=== PATIENT | female | born 1995 | race Caucasian/White ===

== ENCOUNTER 2020-01-30 15:38 | Emergency (ER) | payer OTHER ==
--- OUTSIDE RECORDS SUMMARY | 2020-01-30 15:42 | XMS REPORT | Encounter Summary ---
:1995 Author Care Team Providers Name Role Phone Karime Kala Lump Inspector [phone] Reason for Visit ob 28 week visit Instructions 1. Routine care urinalysis, dipstick tubal ligation information pumping and storing breast milk education 2. screening glucose tolerance test, 1- hour CBC w/ auto diff HIV (1+2) Ab screen, serum RPR (rapid plasma reagin), serum antibody screen, serum or plasma 3. pyelectasis 4. Rubella non-immune 5. Trichomonal vaginitis in preg [place] trichomonas vaginalis DNA, PCR, unspecified specimen Discussion Note Discussed ultrasound findings. Disc ussed labor symptoms and expected movement. Encouraged adequate flu id intake and daily PNV and iron. 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 Procedures None recorded. Surgeries None recorded. Imaging None recorded. Medications Name Start Date acetaminophen 300 mg-codeine 30 mg tablet amoxicillin 500 mg capsule ferrous gluconate 240 mg (27 mg iron) tablet Take 1 tablet every day by oral route. Macrobid 100 mg capsule Take 1 capsule every 12 hours by oral route. metoclopramide 10 mg tablet Take 1 tablet every 6 hours by oral route as needed. promethazine promethazine 25 mg rectal suppository promethazine 25 mg tablet Take 1 tablet every 6 hours by oral route as needed. Medications Administered None recorded. Vitals Height Weight BMI Blood Pressure 5 ft 5 in 236.1 lbs 39.3 kg/m2 128/77 mm[Hg] Results Lab Results Date Name Specimen Result Interpretation Description Value Range Status Address Urinalysis, Leukocytes Small In-House Dipstick Results: For Internal U se Only Nitrite negative In-Smooth se Results: F or Internal U se Only Urobilinogen .2 In- House Results: F or Internal U se Only Protein 30 In-House Results: F or Internal U se Only Ph 6.0 In-House Results: F or Internal U se Only Blood Negative In-House Results: F or Internal U se Only Specific 1.030 In-Hous e [place] Results: For Internal U se Only Ketone Trace In-House Results: F or Internal U se Only Bilirubin Negative In-H ouse Results: F or Internal U se Only Glucose Negative In-Smooth se Results: F or Internal U se Only Appearance Slightly In- House Cloudy Results: F or Internal U se Only Color Yellow In-House Results: F or Internal U se Only US, Obstetric, No observation In-House Limited recorded. Result s: For Internal U se Only Urinalysis, Leukocytes Small In-House Dipstick Results: For Internal U se Only Nitrite negative In-Smooth se Results: F or Internal U se Only Urobilinogen .2 In- House Results: F or Internal U se Only Protein Trace In-House Results: F or Internal U se Only Ph 6.0 In-House Results: F or Internal U se Only Blood Negative In-House Results: F or Internal U se Only Specific 1.030 In-Hous e [place] Results: For Internal U se Only Ketone Negative In-Hous e Results: F or Internal U se Only Bilirubin Negative In-H ouse Results: F or Internal U se Only Glucose Negative In-Smooth se Results: F or Internal U se Only Appearance Clear In-Ho use Results: F or Internal U se Only Color Yellow In-House Results: F or Internal U se Only Allergies Code Code System Name Reaction Severity Status Onset NKDA Problems Name Status Onset Date Source Infection by Trichomonas Active 06/16/2019 Rubella Non-immune Active 08/05/2019 Active 08/05/2019 Pyelectasis Active 11/11/2019 Procedures Date Name Performed by 06/03/2000 Eye Surgery Information not avai lable 10/14/2019 US, Obstetric, Limited [place] [id number] 11/10/2019 US, Obstetric, Limited [facility] (Scheduling) [address] [place] [address] (Work Place) Vaccine List Vaccine Type influenza, injectable, quadrivalent 06/16/2019 Social History Tobacco Smoking Status Former Smoker Past Encounters 11/11/2019 Routine Care; Screen ing; Pyelectasis; Rubella Non- immune; Trichomonal Vaginitis in Karime Armendariz MD: [address], [place], [place] [id number], Ph. [phone] 10/14/2019 Routine Care; Anomaly of Kidney; Rubella Non-immune Karime Armendariz MD: [address], [place], [place] [id number], Ph. [phone] History of Present Illness None recorded. Review of Systems None recorded. Physical Exam None recorded.
--- OUTSIDE RECORDS SUMMARY | 2020-01-30 15:42 | XMS REPORT | Encounter Summary ---
:1995 Author Care Team Providers Name Role Phone Karime Armendariz Hot Iron Worker [phone] Reason for Visit NST BPP Instructions 1. Routine care urinalysis, dipstick 2. Gestational diabetes mellitus US, obstetric, biophysical profile gestational diabetes: care instructions 3. pyelectasis 4. Rubella non-immune Discussion Note: None recorded. Plan of Care Reminders Provider Appointments BPP/NST Sonogra m 12/22/2019 1:30PM BPP/NST Karime bolaños 12/22/2019 MD Kala 1:30PM Lab Urinalysis, In-Ho use Results Dipstick 12/16/2019 Referral None recorded. Procedures None recorded. Surgeries None recorded. Imaging US, Obstetric, In -House Results Biophysical Profile 12/16/2019 Medications Name Start Date acetaminophen 300 mg-codeine 30 mg tablet amoxicillin 500 mg capsule BD Ultra-Fine Shilpi Pen Needle 32 gauge x 5/32" ferrous gluconate 240 mg (27 mg iron) tablet Take 1 tablet every day by oral route. ferrous sulfate 325 mg (65 mg iron) tablet Take 1 tablet every day by oral route for 30 days. Levemir FlexTouch U-100 Insulin 100 unit/mL (3 mL) sub cutaneous pen Macrobid 100 mg capsule Take 1 capsule every 12 hours by oral route. metoclopramide 10 mg tablet Take 1 tablet every 6 hours by oral route as needed. metronidazole 500 mg tablet Take 1 tablet twice a day by oral route for 7 days. promethazine promethazine 25 mg rectal suppository promethazine 25 mg tablet Take 1 tablet every 6 hours by oral route as needed. True Metrix Glucose Meter True Metrix Glucose Test Strip Take 120 strips by miscell. route. TRUEplus Lancets 33 gauge Medications Administered None recorded. Vitals Height Weight BMI Blood Pressure 5 ft 5 in 246 lbs 40.9 kg/m2 122/77 mm[Hg] Results Lab Results Date Name Specimen Result Interpretation Description Value Range Status Address Urinalysis, Leukocytes Small In-House Dipstick Results: For Internal U se Only, Do N ot Delete/grabiel ge Nitrite negative In-Smooth se Results: F or Internal U se Only, Do N ot Delete/grabiel ge Urobilinogen .2 In- House Results: F or Internal U se Only, Do N ot Delete/grabiel ge Protein Trace In-House Results: F or Internal U se Only, Do N ot Delete/grabiel ge Ph 6.0 In-House Results: F or Internal U se Only, Do N ot Delete/grabiel ge Blood Negative In-House Results: F or Internal U se Only, Do N ot Delete/grabiel ge Specific 1.025 In-Hous e [place] Results: For Internal U se Only, Do N ot Delete/grabiel ge Ketone Negative In-Hous e Results: F or Internal U se Only, Do N ot Delete/grabiel ge Bilirubin Negative In-H ouse Results: F or Internal U se Only, Do N ot Delete/grabiel ge Glucose Negative In-Smooth se Results: F or Internal U se Only, Do N ot Delete/grabiel ge Appearance Clear In-Ho use Results: F or Internal U se Only, Do N ot Delete/grabiel ge Color Yellow In-House Results: F or Internal U se Only, Do N ot Delete/grabiel ge US, Obstetric, No observation In-House Limited recorded. Result s: For Internal U se Only, Do N ot Delete/grabiel ge Allergies Code Code System Name Reaction Severity Status Onset NKDA Problems Name Status Onset Date Source Infection by Trichomonas Active 06/16/2019 Rubella Non-immune Active 08/05/2019 Active 08/05/2019 Pyelectasis Active 11/11/2019 Gestational Diabetes Mellitus Active 11/18/2019 Procedures Date Name Performed by 06/03/2000 Eye Surgery Information not avai lable 12/09/2019 US, Obstetric, Limited In-House Results For Internal Use Onl y DO Not Delete/Merge [id number] 12/16/2019 US, Obstetric, Biophysical Profile In-Ho use Results For Internal Use Onl y DO Not Delete/Merge [id number] Vaccine List Vaccine Type influenza, injectable, quadrivalent 06/16/2019 Social History Tobacco Smoking Status Former Smoker Past Encounters 12/16/2019 Routine Care; Gestational Diab etes Mellitus; Pyelectasis; Rubella Non-immune Karime Armendariz MD: [address] [facility] [address], [place] [address], Ph. [phone] 12/09/2019 Routine Care Karime Armendariz MD: [address] [facility] [address], [place] [address], Ph. [phone] 11/18/2019 Karime Armendariz MD: [address] [facility] [address], [place] [address], Ph. [phone] History of Present Illness None recorded. Review of Systems None recorded. Physical Exam None recorded.
--- OUTSIDE RECORDS SUMMARY | 2020-01-30 15:42 | XMS REPORT | Encounter Summary ---
:1995 Author Care Team Providers Name Role Phone Karime Armendariz Lathe Sander [phone] Reason for Visit NST BPP Instructions 1. Routine care urinalysis, dipstick 2. Gestational diabetes mellitus gestational diabetes: care instructions US, obstetric, biophysical profile 3. Rubella non-immune 4. pyelectasis Discussion Note: None recorded. Plan of Care Reminders Provider Appointments BPP/NST Karime Pandey 12/29/2019 MD Kala 9:45AM BPP/NST Sonogram 12/29/2019 10:00AM Lab Urinalysis, In-Ho use Results Dipstick 12/22/2019 Referral None recorded. Procedures None recorded. Surgeries None recorded. Imaging US, Obstetric, In -House Results Biophysical Profile 12/22/2019 Medications Name Start Date BD Ultra-Fine Shilpi Pen Needle 32 gauge x 5/32" ferrous gluconate 240 mg (27 mg iron) tablet Take 1 tablet every day by oral route. ferrous sulfate 325 mg (65 mg iron) tablet Take 1 tablet every day by oral route for 30 days. Levemir FlexTouch U-100 Insulin 100 unit/mL (3 mL) sub cutaneous pen promethazine 25 mg tablet Take 1 tablet every 6 hours by oral route as needed. True Metrix Glucose Meter True Metrix Glucose Test Strip Take 120 strips by miscell. route. TRUEplus Lancets 33 gauge Medications Administered None recorded. Vitals Height Weight BMI Blood Pressure 5 ft 5 in 248 lbs 41.3 kg/m2 123/74 mm[Hg] Results Lab Results Date Name Specimen [...] Only, Do N ot Delete/grabiel ge Ph 6.5 In-House Results: F or Internal U se Only, Do N ot Delete/grabiel ge Blood Negative In-House Results: F or Internal U se Only, Do N ot Delete/grabiel ge Specific 1.025 In-Hous e [place] Results: For Internal U se Only, Do [...] se Only, Do N ot Delete/grabiel ge Urinalysis, Leukocytes Small In-House Dipstick Results: For [...] ot Delete/grabiel ge Specific 1.025 In-Hous e [place] Results: For Internal U se Only, Do [...] Internal Use Onl y DO Not Delete/Merge [id number] 12/16/2019 US, Obstetric, Biophysical Profile In-Ho use Results For Internal Use Onl y DO Not Delete/Merge [id number] 12/22/2019 US, Obstetric, Biophysical Profile In-Ho use Results For Internal Use Onl y DO Not Delete/Merge [id number] Vaccine List Vaccine Type influenza, injectable, quadrivalent 06/16/2019 Social History Tobacco Smoking Status Former Smoker Past Encounters 12/22/2019 Routine Care; Gestational Diab etes Mellitus; Rubella Non-immune; Pyelectasis Karime Armendariz MD: [address] [facility] [address] [facility], [place] [address], Ph. [phone] 12/16/2019 Routine Care; Gestational Diab etes Mellitus; Pyelectasis; Rubella Non-immune Karime Armendariz MD: [address] [facility] [address] [facility], [place] [address], Ph. [phone] 12/09/2019 Routine Care Karime Armendariz MD: [address] [facility] [address] [facility], [place] [address], Ph. [phone] History of Present Illness None recorded. Review of Systems None recorded. Physical Exam None recorded.
--- OUTSIDE RECORDS SUMMARY | 2020-01-30 15:42 | XMS REPORT | Continuity of Care Document ---
:1995 Author Organization [facility] t Address [address] [place] [address] Care Team Providers Name Role Phone Billy Bella Attending Clinician Doctor Unassigned, Name Attending Clinician Unavailable Problems Condition Condition Condition Status Onset Resolution Last Treating Co mments Source Name Details Category Date Date Treatment Clinician Date Gestationa Gestationa Problem Active 2020-0 [facility] l diabetes l Diabetes 6-17 da mellitus Mellitus 00:00: Medica l 00 Group Problem Active 2020-0 [facility] pyelectasi Pyelectasi 6-10 da s s 00:00: Medical 00 Group Rubella Rubella Problem Active 2020-0 [facility] non-immune Non-immune 3-04 da 00:00: Medical 00 Group Problem Active 2020-0 [facility] 3-04 da 00:00: Medical 00 Group Infection Infection Problem Active 2020-0 [facility] by by 1-14 da Trichomona Trichomona 00:00: Me dical s s 00 Group Allergies, Adverse Reactions, Alerts This patient has no known allergies or adverse reactions. Social History Smoking Status Start Date Stop Date Source Former Smoker [facility] Medications Ordered Filled Start Stop Current Ordering Indication Dosage Frequency Signature Comments Components Source Medication Medication Date Date Medication? Clinician (SIG) Name Name BD BD No BD [facility] Ultra-Fine Ultra-Fine Ultra-Fine da Shilpi Pen Shilpi Pen Shilpi Pen Med ical Needle 32 Needle 32 Needle 32 Group gauge x gauge x gauge x " " " ferrous ferrous No 1 Q1D ferrous [facility] gluconate gluconate gluconate da 240 mg (27 240 mg (27 240 mg (27 Medical mg iron) mg iron) mg iron) Sally up tablet Take tablet Take tablet 1 tablet 1 tablet Take 1 every day every day tablet by oral by oral every day route. route. by oral route. ferrous ferrous No 1 Q1D ferrous [facility] sulfate 325 sulfate 325 sulfate da mg (65 mg mg (65 mg 325 mg (65 Medical iron) iron) mg iron) Group tablet Take tablet Take tablet 1 tablet 1 tablet Take 1 every day every day tablet by oral by oral every day route for route for by oral 30 days. 30 days. route for 30 days. fluconazole fluconazole No fluconazol [facility] 150 mg 150 mg e 150 mg da tablet Take tablet Take tablet Medical 1 tablet 1 tablet Take 1 Group every 72 every 72 tablet hours by hours by every 72 oral route. oral route. hours by oral route. Levemir Levemir No Levemir [facility] FlexTouch FlexTouch FlexTouch da U-100 U-100 U-100 Medical Insulin 100 Insulin 100 Insulin Group unit/mL (3 unit/mL (3 100 mL) mL) unit/mL (3 subcutaneou subcutaneou mL) s pen s pen subcutaneo us pen promethazin promethazin No promethazi [facility] e 25 mg e 25 mg ne 25 mg da tablet Take tablet Take tablet Medical 1 tablet 1 tablet Take 1 Group every 6 every 6 tablet hours by hours by every 6 oral route oral route hours by as needed. as needed. oral route as needed. tinidazole tinidazole No 1 BID tinidazole [facility] 500 mg 500 mg 500 mg da tablet Take tablet Take tablet Medical 1 tablet 1 tablet Take 1 Group twice a day twice a day tablet by oral by oral twice a route for 2 route for 2 day by days. days. oral route for 2 days. True Metrix True Metrix No True [facility] Glucose Glucose Metrix da Meter Meter Glucose Medical Meter Group True Metrix True Metrix No True [facility] Glucose Glucose Metrix da Test Strip Test Strip Glucose Medical Take 120 Take 120 Test Strip G roup strips by strips by Take 120 miscell. miscell. strips by route. route. miscell. route. TRUEplus TRUEplus No TRUEplus [facility] Lancets 33 Lancets 33 Lancets 33 da gauge gauge gauge Medical Group Immunizations Ordered Immunization Filled Immunization Date Status Commen ts Source Name Name influenza, influenza, 2019-06-16 Completed [facility] injectable, injectable, 00:00:00 Medical Grou p quadrivalent quadrivalent Vital Signs Vital Name Observation Time Observation Value Comments Source BP Diastolic 2020-01-12 00:00:00 76 mm[Hg] [facility] Height 2020-01-12 00:00:00 65 [in_i] [facility] BMI (Body Mass 2020-01-12 00:00:00 42.1 kg/m2 [facility] Index) Group BP Systolic 2020-01-12 00:00:00 123 mm[Hg] [facility] Body Weight 2020-01-12 00:00:00 253 [lb_av] [facility] BP Diastolic 2020-01-05 00:00:00 73 mm[Hg] [facility] Height 2020-01-05 00:00:00 65 [in_i] [facility] BMI (Body Mass 2020-01-05 00:00:00 42.3 kg/m2 [facility] Index) Group BP Systolic 2020-01-05 00:00:00 131 mm[Hg] [facility] Body Weight 2020-01-05 00:00:00 254.4 [lb_av] [facility] BP Diastolic 2019-12-29 00:00:00 67 mm[Hg] [facility] Height 2019-12-29 00:00:00 65 [in_i] [facility] BMI (Body Mass 2019-12-29 00:00:00 42.2 kg/m2 [facility] Index) Group BP Systolic 2019-12-29 00:00:00 112 mm[Hg] [facility] Body Weight 2019-12-29 00:00:00 253.4 [lb_av] [facility] BP Diastolic 2019-12-22 00:00:00 74 mm[Hg] [facility] Height 2019-12-22 00:00:00 65 [in_i] [facility] BMI (Body Mass 2019-12-22 00:00:00 41.3 kg/m2 [facility] 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) Group BP Systolic 2019-12-22 00:00:00 123 mm[Hg] [facility] Body Weight 2019-12-22 00:00:00 248 [lb_av] [facility] BP Diastolic 2019-12-16 00:00:00 77 mm[Hg] [facility] Height 2019-12-16 00:00:00 65 [in_i] [facility] BMI (Body Mass 2019-12-16 00:00:00 40.9 kg/m2 [facility] Medical Index) Group BP Systolic 2019-12-16 00:00:00 122 mm[Hg] [facility] Body Weight 2019-12-16 00:00:00 246 [lb_av] [facility] BP Diastolic 2019-12-09 00:00:00 84 mm[Hg] [facility] Height 2019-12-09 00:00:00 65 [in_i] [facility] BMI (Body Mass 2019-12-09 00:00:00 40.3 kg/m2 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) Group BP Systolic 2019-12-09 00:00:00 134 mm[Hg] [facility] Body Weight 2019-12-09 00:00:00 242 [lb_av] [facility] BP Diastolic 2019-11-11 00:00:00 77 mm[Hg] [facility] Height 2019-11-11 00:00:00 65 [in_i] [facility] BMI (Body Mass 2019-11-11 00:00:00 39.3 kg/m2 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) Group BP Systolic 2019-11-11 00:00:00 128 mm[Hg] [facility] Body Weight 2019-11-11 00:00:00 236.1 [lb_av] [facility] BP Diastolic 2019-10-14 00:00:00 81 mm[Hg] [facility] Height 2019-10-14 00:00:00 65 [in_i] [facility] BMI (Body Mass 2019-10-14 00:00:00 38.4 kg/m2 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) Group BP Systolic 2019-10-14 00:00:00 126 mm[Hg] [facility] Body Weight 2019-10-14 00:00:00 230.8 [lb_av] [facility] BP Diastolic 2019-09-17 00:00:00 65 mm[Hg] [facility] Height 2019-09-17 00:00:00 65 [in_i] [facility] BMI (Body Mass 2019-09-17 00:00:00 34.6 kg/m2 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) Group BP Systolic 2019-09-17 00:00:00 125 mm[Hg] [facility] Body Weight 2019-09-17 00:00:00 208.1 [lb_av] [facility] Height 2019-08-17 00:00:00 65 [in_i] [facility] BMI (Body Mass 2019-08-17 00:00:00 34.2 kg/m2 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) Group Body Weight 2019-08-17 00:00:00 205.8 [lb_av] [facility] Procedures Procedure Date / Time Performing Clinician Source Performed US, obstetric, limited 2020-01-12 00:00:00 [facility] non-stress test 2020-01-12 00:00:00 [facility] US(FBP)W/0 NON STRESS 2020-01-05 00:00:00 [facility] TEST Group non-stress test 2019-12-29 00:00:00 [facility] US(FBP)W/0 NON STRESS 2019-12-22 00:00:00 [facility] TEST Group US(FBP)W/0 NON STRESS 2019-12-16 00:00:00 [facility] operator [facility] TEST Group US, obstetric, limited 2019-12-09 [facility], obstetric, limited 2019-11-10 00:00:00 [facility] US, obstetric, limited 2019-10-14 00:00:00 [facility] ULTRASOUND, 2019-08-17 [facility] UTERUS REAL TIME WITH Group IMAGE DOC, AND MATERNAL EVAL PLUS DETAILED ANATOMIC EXAMINATION, TRANSABDOMINAL APPROACH; SINGLE OR FIRST GESTATION US, obstetric, limited 2019-08-17 00:00:00 [facility] Eye Surgery 2000-06-03 00:00:00 [facility] Plan of Care Planned Activity Planned Date Details Comments Source Diagnostic Test 2020-01-12 urinalysis, [facility] Pending 00:00:00 dipstick [code = Group urinalysis, dipstick] Encounters Start End Encounter Admission Attending Care Care Encounter Source Date/Time Date/Time Type Type Clinicians Facility Department ID 2020-01-12 2020-01-12 Karime MM [place] - [id number] [facility] 00:00:00 00:00:00 [facility] MD: [address] [place], [place] [address] [address] [place] [address] , Ph. [phone] 2020-01-05 2020-01-05 Karime MM [place] - [id number] [facility] 00:00:00 00:00:00 Dannie [facility] MD: [address] [place], [place] [address] Suite [facility], [place] [address] , Ph. [phone] 2019-12-29 2019-12-29 Karime MM [place] - [id number] [facility] 00:00:00 00:00:00 D[facility]: [address] [facility] [address] [facility], [place] [address] , Ph. [phone] 2019-12-22 2019-12-22 Karime MM [place] - [id number] [facility] 00:00:00 00:00:00 Dannie [facility] ulrich MD: [address] [place], [place] [address] [address] [facility], [place] [address] , Ph. [phone] 2019-12-16 2019-12-16 Karime MM [place] - [id number] [facility] 00:00:00 00:00:00 Dannie [facility] ulrich MD: [address] [place] [address], [place] [address] , Ph. [phone] 2019-12-09 2019-12-09 Karime MM [place] - [id number] [facility] 00:00:00 00:00:00 Dannei [facility] ulrich MD: [address] [place] [address], [place] [address] , Ph. [phone] 2019-11-18 2019-11-18 Karime [facility] [place] - [id number] [facility] 00:00:00 00:00:00 Ansley Youngblood Mediclg ulrich MD: [address] [place] [address], [place] [address] , Ph. [phone] 2019-11-11 2019-11-11 Karime [facility] [place] - [id number] [facility] 00:00:00 00:00:00 Ansley Youngblood Mediclg ulrich MD: [address] [place] [address], [place] [address] , Ph. [phone] 2019-10-14 2019-10-14 Karime [facility] [place] - [id number] [facility] 00:00:00 00:00:00 Dannie Galindo [facility] Medic[facility] ulrich MD: [address] [place] [address] , Ph. [phone] 2019-09-17 2019-09-17 Hira [facility] [place] - [id number] [facility] 00:00:00 00:00:00 Discovery radha Amin MD: [address] [place] [address] , Ph. [phone] 2019-08-21 2019-08-21 Kathy Westfall [facility] [id number] 00:00:00 00:00:00 Nallely Cervantes OPTICAL ASSISTANT [id number] REGIONAL [id number] MATERNAL [id number] & CHILD [address] [facility] 2019-08-17 2019-08-17 Hira G [place] - [id number] M chris 00:00:00 00:00:00 Discovery radha Amin MD: [address] [facility] [address], [place] [address] , Ph. [phone] 2019-07-30 2019-07-30 Orders Doctor JODI [id number] 00:00:00 00:00:00 Only Unassigned, JHONATHAN [id number] [place] [facility] [id number] 2019-07-14 2019-07-14 Routine Khoi, [facility] [id number] 10:09:33 11:26:23 Nallely Cervantes OPTICAL ASSISTANT [id number] Visit REGIONAL [id number] MATERNAL [id number] & CHILD [facility] Results Test Description Test Time Test Comments Results Result Comments Source Biophysical profile panel 2020-01-05 11:58:00 Test Item Value Reference Range Interpretation Comme nts Amniotic Fluid Index (test code = Amniotic Fluid Index) 2 (16.9) Tone (test code = Tone) 2 Breathing (test code = Breathing) 2 Movement (test code = Movement) 2 [facility], DNA, urine/[id number] 00:00:00 Test Item Value Reference Range Interpretation Comments chlamydia trachomatis by real-time negative PCR (reflex to azithromycin resistance by pyrosequencing) (test code = chlamydia trachomatis by real-time PCR (reflex to azithromycin resistance by pyrosequencing)) trichomonas vaginalis by real-time positive A PCR (reflex to metronidazole resistance) (test code = trichomonas vaginalis by real-time PCR (reflex to metronidazole resistance)) neisseria gonorrhoeae by real-time negative PCR (reflex to antibiotic resistance by molecular analysis) (test code = neisseria gonorrhoeae by real-time PCR (reflex to antibiotic resistance by molecular analysis)) [facility] [Presence] in Unspecified specimen by Organism specific [id number] 00:00:00 Test Item Value Reference Range Interpretation Comments group B streptococcus (gbs) by positive A real-time PCR (test code = group B streptococcus (gbs) by real-time PCR) group B streptococcus (gbs) positive A antibiotic resistance by PCR (test code = group B streptococcus (gbs) antibiotic resistance by PCR) [facility] Biophysical profile [id number] 14:14:00 Test Item Value Reference Range Interpretation Comments Amniotic Fluid Index (test code = 2 (15.4) Amniotic Fluid Index) Tone (test code = Tone) 2 Breathing (test code = 2 Breathing) Movement (test code = 2 Movement) [facility] Biophysical profile [id number] 14:14:00 Test Item Value Reference Range Interpretation Comments Amniotic Fluid Index (test code = 2 (15.4) Amniotic Fluid Index) Tone (test code = Tone) 2 Breathing (test code = 2 Breathing) Movement (test code = 2 Movement) [facility] Biophysical profile [id number] 14:14:00 Test Item Value Reference Range Interpretation Comments Amniotic Fluid Index (test code = 2 (15.4) Amniotic Fluid Index) Tone (test code = Tone) 2 Breathing (test code = 2 Breathing) Movement (test code = 2 Movement) [facility] Biophysical profile [id number] 14:14:00 Test Item Value Reference Range Interpretation Comments Amniotic Fluid Index (test code = 2 (15.4) Amniotic Fluid Index) Tone (test code = Tone) 2 Breathing (test code = 2 Breathing) Movement (test code = 2 Movement) [facility] Biophysical profile [id number] 10:51:00 Test Item Value Reference Range Interpretation Comments Amniotic Fluid Index (test code = 2 (14.5) Amniotic Fluid Index) Tone (test code = Tone) 2 Breathing (test code = 2 Breathing) Movement (test code = 2 Movement) [facility] Biophysical profile panel [id number] 10:51:00 Test Item Value Reference Range Interpretation Comments Amniotic Fluid Index (test code = 2 (14.5) Amniotic Fluid Index) Tone (test code = Tone) 2 Breathing (test code = 2 Breathing) Movement (test code = 2 Movement) [facility] Biophysical profile panel [id number] 10:51:00 Test Item Value Reference Range Interpretation Comments Amniotic Fluid Index (test code = 2 (14.5) Amniotic Fluid Index) Tone (test code = Tone) 2 Breathing (test code = 2 Breathing) Movement (test code = 2 Movement) [facility] Biophysical profile panel [id number] 10:51:00 Test Item Value Reference Range Interpretation Comments Amniotic Fluid Index (test code = 2 (14.5) Amniotic Fluid Index) Tone (test code = Tone) 2 Breathing (test code = 2 Breathing) Movement (test code = 2 Movement) [facility] macro (dipstick) panel - [id number] 10:30:00 Test Item Value Reference Range Interpretation Comments Leukocytes (test code = Small Leukocytes) Nitrite (test code = negative Nitrite) Urobilinogen (test code = .2 Urobilinogen) Protein (test code = 30 Protein) pH (test code = pH) 6.0 Blood (test code = Blood) Hemolyzed: Trace Specific [place] (test code 1.020 = Specific [place]) Ketone (test code = Ketone) Negative Bilirubin (test code = Negative Bilirubin) Glucose (test code = Negative Glucose) Appearance (test code = Clear Appearance) Color (test code = Color) Yellow [facility] macro (dipstick) panel - [id number] 10:30:00 Test Item Value Reference Range Interpretation Comments Leukocytes (test code = Small Leukocytes) Nitrite (test code = negative Nitrite) Urobilinogen (test code = .2 Urobilinogen) Protein (test code = 30 Protein) pH (test code = pH) 6.0 Blood (test code = Blood) Hemolyzed: Trace Specific [place] (test code 1.020 = Specific [place]) Ketone (test code = Ketone) Negative Bilirubin (test code = Negative Bilirubin) Glucose (test code = Negative Glucose) Appearance (test code = Clear Appearance) Color (test code = Color) Yellow [facility] Hospital[facility]ysis macro (dipstick) panel - [id number] 10:30:00 Test Item Value Reference Range Interpretation Comments Leukocytes (test code = Small Leukocytes) Nitrite (test code = negative Nitrite) Urobilinogen (test code = .2 Urobilinogen) Protein (test code = 30 Protein) pH (test code = pH) 6.0 Blood (test code = Blood) Hemolyzed: Trace Specific [place] (test code 1.020 = Specific [place]) Ketone (test code = Ketone) Negative Bilirubin (test code = Negative Bilirubin) Glucose (test code = Negative Glucose) Appearance (test code = Clear Appearance) Color (test code = Color) Yellow [facility] Hospital[facility]inalysis macro (dipstick) panel - [id number] 10:30:00 Test Item Value Reference Range Interpretation Comments Leukocytes (test code = Small Leukocytes) Nitrite (test code = negative Nitrite) Urobilinogen (test code = .2 Urobilinogen) Protein (test code = 30 Protein) pH (test code = pH) 6.0 Blood (test code = Blood) Hemolyzed: Trace Specific [place] (test code 1.020 = Specific [place]) Ketone (test code = Ketone) Negative Bilirubin (test code = Negative Bilirubin) Glucose (test code = Negative Glucose) Appearance (test code = Clear Appearance) Color (test code = Color) Yellow [facility] HospitalTrichomonas vaginalis DNA [Presence] in Unspecified specimen by JAMES with probe [id number] 00:00:00 Test Item Value Reference Range Interpretation Comments trichomonas vaginalis by real-time positive A PCR (reflex to metronidazole resistance) (test code = trichomonas vaginalis by real-time PCR (reflex to metronidazole resistance)) [facility] W Auto Differential panel - [id number] 08:40:00 Test Item Value Reference Range Interpretation Comments white blood count (test code = 11.4 K/uL 4.0-11.5 white blood count) red blood count (test code = red 3.59 M/uL 3.80-5.20 L blood count) hemoglobin (test code = 10.2 g/dL 10.5-15.7 L hemoglobin) hematocrit (test code = 32.0 % 34.0-50.0 L hematocrit) MCV [Entitic volume] (test code = 89.1 fL 86-100 41645-4) mean corpuscular hemoglobin (test 28.4 pg 26.2-33.4 code = mean corpuscular hemoglobin) mean corpuscular HGB conc (test 31.9 g/dL 30-34 code = mean corpuscular HGB conc) red cell distribution width (test 13.1 % 12.0-15.5 code = red cell distribution width) platelet count (test code = 205 K/uL 165-450 platelet count) mean platelet volume (test code = 10.2 fL 9.4-12.6 mean platelet volume) Segmented neutrophils/100 75.5 % 44.4-80.1 leukocytes in Blood (test code = 91731-1) Immature granulocytes [#/volume] 0.1 K/uL 0.0-0.03 H in Blood (test code = 15758-8) lymphocyte% (test code = 15.8 % 10.0-50.0 lymphocyte%) mono % (test code = mono %) 7.1 % 3.6-12.0 eos % (test code = eos %) 0.4 % 0.0-5.4 Basophils/100 leukocytes in 0.2 % 0.1-1.2 Unspecified specimen (test code = 55672-8) Band form neutrophils [#/volume] 8.62 K/uL 1.56-6.13 H in Blood (test code = 26110-1) Lymphocytes [#/volume] in 1.8 K/uL 1.18-3.74 Unspecified specimen by Automated count (test code = 38923-3) mono # (test code = mono #) 0.81 K/uL 0.24-0.86 eos # (test code = eos #) 0.05 K/uL 0.04-0.36 basophil # (test code = basophil 0.02 K/uL 0.01-0.08 #) NRBC% (test code = NRBC%) 0 /100 WBC 0-0.2 NRBC# (test code = NRBC#) 0 K/uL [facility] HospitalDifferential panel, method unspecified - [id number] 08:40:00NeutrophilsBandLymphocyteMonocyteEosinophilBasophilPlatelet Estimate [facility] GroupBlood group antibody screen [Presence] in Serum or Plasma 2019-11-11 08:40:00 Test Item Value Reference Range Interpretation Comments Blood group antibody screen negative [Presence] in Serum or Plasma (test code = 890-4) [facility] GroupReagin Ab [Presence] in Serum by [id number] 08:40:00 Test Item Value Reference Range Interpretation Comments Reagin Ab [Presence] in Serum by nonreactive nonreactive RPR (test code = 15770-9) [facility] GroupHIV 1+2 Ab [Presence] in [id number] 08:40:00HIV P24 AgHIV-1/2 AbMataPatient's Choice [facility] CountyUrinalysis macro (dipstick) panel - Urine 2019-09-17 09:32:01 Test Item Value Reference Range Interpretation Comments Leukocytes (test code = Leukocytes) Small Nitrite (test code = Nitrite) negative Urobilinogen (test code = .2 Urobilinogen) Protein (test code = Protein) Negative pH (test code = pH) 5.5 Blood (test code = Blood) Negative Specific [place] (test code = 1.030 Specific [place]) Ketone (test code = Ketone) Negative Bilirubin (test code = Bilirubin) Negative Glucose (test code = Glucose) 100 Appearance (test code = Appearance) Clear Color (test code = Color) Yellow [facility] HospitalUrinalysis macro (dipstick) panel - [id number] 09:32:01 Test Item Value Reference Range Interpretation Comments Leukocytes (test code = Leukocytes) Small Nitrite (test code = Nitrite) negative Urobilinogen (test code = .2 Urobilinogen) Protein (test code = Protein) Negative pH (test code = pH) 5.5 Blood (test code = Blood) Negative Specific [place] (test code = 1.030 Specific [place]) Ketone (test code = Ketone) Negative Bilirubin (test code = Bilirubin) Negative Glucose (test code = Glucose) 100 Appearance (test code = Appearance) Clear Color (test code = Color) Yellow [facility] HospitalUrinalysis macro (dipstick) panel - [id number] 09:30:00 Test Item Value Reference Range Interpretation Comments Leukocytes (test code = Small Leukocytes) Nitrite (test code = negative Nitrite) Urobilinogen (test code = .2 Urobilinogen) Protein (test code = Negative Protein) pH (test code = pH) 6.0 Blood (test code = Blood) Non-Hemolyzed: Trace Specific [place] (test 1.030 code = Specific [place]) Ketone (test code = Negative Ketone) Bilirubin (test code = Negative Bilirubin) Glucose (test code = Negative Glucose) Appearance (test code = Clear Appearance) Color (test code = Color) Yellow [facility] HospitalUrinalysis macro (dipstick) panel - [id number] 09:30:00 Test Item Value Reference Range Interpretation Comments Leukocytes (test code = Small Leukocytes) Nitrite (test code = negative Nitrite) Urobilinogen (test code = .2 Urobilinogen) Protein (test code = Negative Protein) pH (test code = pH) 6.0 Blood (test code = Blood) Non-Hemolyzed: Trace Specific [place] (test 1.030 code = Specific [place]) Ketone (test code = Negative Ketone) Bilirubin (test code = Negative Bilirubin) Glucose (test code = Negative Glucose) Appearance (test code = Clear Appearance) Color (test code = Color) Yellow [facility] HospitalChromosome 13+18+21+X+Y aneuploidy in Blood by Molecular genetics method [id number] 00:00:00 Test Item Value Reference Range Interpretation Comments report summary (test code see notes = report summary) report note (test code = see notes report note) trisomy 13 age-based risk score (test code = trisomy 13 age-based risk score) trisomy 13 risk score (test code = trisomy 13 risk score) trisomy 13 age-based risk <1/10,000 (<0.01%) text (test code = trisomy 13 age-based risk text) trisomy 13 risk score text <1/10,000 (<0.01%) (test code = trisomy 13 risk score text) trisomy 13 age-based risk fraction (test code = trisomy 13 age-based risk fraction) trisomy 13 risk score fraction (test code = trisomy 13 risk score fraction) trisomy 13 result text low risk (test code = trisomy 13 result text) trisomy 13 result comments see notes (test code = trisomy 13 result comments) trisomy 18 age-based risk score (test code = trisomy 18 age-based risk score) trisomy 18 risk score (test code = trisomy 18 risk score) trisomy 18 age-based risk 1/3,590 (0.03%) text (test code = trisomy 18 age-based risk text) trisomy 18 risk score text <1/10,000 (<0.01%) (test code = trisomy 18 risk score text) trisomy 18 age-based risk fraction (test code = trisomy 18 age-based risk fraction) trisomy 18 risk score fraction (test code = trisomy 18 risk score fraction) trisomy 18 result text low risk (test code = trisomy 18 result text) trisomy 18 result comments see notes (test code = trisomy 18 result comments) trisomy 21 age-based risk score (test code = trisomy 21 age-based risk score) trisomy 21 risk score (test code = trisomy 21 risk score) trisomy 21 age-based risk 1/1,200 (0.08%) text (test code = trisomy 21 age-based risk text) trisomy 21 risk score text <1/10,000 (<0.01%) (test code = trisomy 21 risk score text) trisomy 21 age-based risk fraction (test code = trisomy 21 age-based risk fraction) trisomy 21 risk score fraction (test code = trisomy 21 risk score fraction) trisomy 21 result text low risk (test code = trisomy 21 result text) trisomy 21 result comments see notes (test code = trisomy 21 result comments) monosomy X age-based risk score (test code = monosomy X age-based risk score) monosomy X risk score (test code = monosomy X risk score) monosomy X age-based risk 1/568 (0.18%) text (test code = monosomy X age-based risk text) monosomy X risk score text <1/10,000 (<0.01%) (test code = monosomy X risk score text) monosomy X age-based risk fraction (test code = monosomy X age-based risk fraction) monosomy X risk score fraction (test code = monosomy X risk score fraction) monosomy X result text low risk (test code = monosomy X result text) monosomy X result comments see notes (test code = monosomy X result comments) triploidy result text low risk (test code = triploidy result text) triploidy result comments see notes (test code = triploidy result comments) gender of fetus (test code male = gender of fetus) fraction (in %) 11.0 % (test code = fraction (in %)) fraction (test code 11.0% = fraction) footnotes (test code = see notes footnotes) boiler plate text (test see notes code = boiler plate text) references (test code = see notes references) approvals (test code = see notes approvals) contacts (test code = see notes contacts) [facility] Un[facility] specimen by Molecular genetics method [id number] 00:00:00 Test Item Value Reference Range Interpretation Comments alpha-thalassemia (test code = negative alpha-thalassemia) beta-hemoglobinopathies (test code negative = beta-hemoglobinopathies) tasha disease (test code = negative tasha disease) cystic fibrosis (test code = cystic negative fibrosis) duchenne/aguayo muscular dystrophy negative (test code = duchenne/aguayo muscular dystrophy) familial dysautonomia (test code = negative familial dysautonomia) fragile X syndrome (test code = negative fragile X syndrome) galactosemia (test code = negative galactosemia) gaucher disease (test code = negative gaucher disease) 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 (test yes code = IS this patient ?) did this patient sign the patient yes acknowledgement? (test code = did this patient sign the patient acknowledgement?) did the ordering clinician sign the yes statement of informed consent? (test code = did the ordering clinician sign the statement of informed consent?) zip code of the ordering facility see notes (test code = zip code of the ordering facility) IS the patient currently using unsure hormonal medications? (test code = IS the patient currently using hormonal medications?) patient ethnicity (test code = patient ethnicity) report note (test code = report see notes note) footnotes (test code = footnotes) see notes references (test code = references) see notes approvals (test code = approvals) see notes contacts (test code = contacts) see notes [facility]
--- OUTSIDE RECORDS SUMMARY | 2020-01-30 15:43 | XMS REPORT | Continuity of Care Document ---
:1995 Author Organization [facility] Address [address] [place] [id number] Care Team Providers Name Role Phone OTHER, NAME IN NOTES Primary Care Physician Unavailable Allergies, Adverse Reactions, Alerts No known allergies. Medications Medication Status Dose Units Route Sig Qty Days Start End Instruct ions Date Date Acetaminophen Active 1-2 ORAL Every 6 30 January W/ Codeine #3 * Hours As , Needed 2019 for Pain 7:09am Ibuprofen Active 1 ORAL Every 6 30 January Hours As , Needed 2020 as 7:08am needed for Pain Problems Active Problems Medical Problem Onset Date Status 37 weeks gestation of Active Breech presentation Active Spontaneous onset of labor after 37 Acti ve but before 39 completed weeks gestation with delivery by planned section Gestational diabetes Active Status post repeat low transverse Active section Status post primary low transverse Activ e section Procedures Procedure Date Performed Status OB US LIMITED FETUS(S) January 12, 2020 completed US obstetrical limited January 12, 2020 completed Relevant Diagnostic Tests and/or Laboratory Data Laboratory Results Test Date/Time Result Interpretation Reference Result Perfo rming Range Comment Site White Blood January 13.5 4.0-11.5 [facility], [address] Count 2019 [facility] [address] 4:50pm Red Blood January 3.46 3.80-5.20 [facility], [address] Count 2019 [facility] 66774 4:50pm Hemoglobin January 8.7 10.5-15.7 [facility], 104 2019 [facility] 69399 4:50pm Hematocrit January 27.8 34.0-50.0 [facility], 104 2019 [facility] 58028 4:50pm Mean January 80.3 86-100 [facility], [address] Corpuscular 2019 [place] [address] Volume 4:50pm Mean January 25.1 26.2-33.4 [facility], [address] Corpuscular 2019 [place] [address] Hemoglobin 4:50pm Mean January 31.3 30-34 [facility], [address] Corpuscular 2019 [place] [address] Hemoglobin 4:50pm Concent Red Cell January 16.1 12.0-15.5 [facility], [address] Distribution 2019 [place] [address] Width 4:50pm Platelet Count January 139 165-450 [facility], [address] [place] [id number] 4:50pm Mean Platelet January 11.6 9.4-12.6 [facility], [address] Volume 2019 [facility] [address]8553 4:50pm Neutrophils January 81.2 44.4-80.1 [facility], [address] (%) (Auto) 2019 [facility] [address]2772 4:50pm Immature [place] 0.8 0.0-0.4 [facility], [address] Granulocyte % 2019 [facility] [address] (Auto) 4:50pm Lymphocytes [place] 10.4 10.0-50.0 [facility], [address] (%) (Auto) 2019 [facility] [address]142 4:50pm Monocytes (%) January 7.4 3.6-12.0 [facility], [address] (Auto) 2019 [facility] [address]77 4:50pm Eosinophils [place] 0.1 0.0-5.4 [facility], [address] (%) (Auto) 2019 [facility] [address]121 4:50pm Basophils (%) January 0.1 0.1-1.2 [facility], [address] (Auto) 2019 [facility] 10866 4:50pm Neutrophils # [place] 10.92 1.56-6.13 [facility], [address] (Auto) 2019 [facility] 49438 4:50pm Absolute [place] 0.1 0.0-0.03 [facility], [address] Immature 2019 [place] [id number] Granulocyte 4:50pm (auto Lymphocytes # [place] 1.4 1.18-3.74 [facility], [address] ST (Auto) 2019 [place] [id number] 4:50pm Monocytes # [place] 1.00 0.24-0.86 [facility], [address] (Auto) 2019 [place] [id number] 4:50pm Eosinophils # [place] 0.01 0.04-0.36 [facility], [address] (Auto) 2019 [place] [id number] 4:50pm Basophils # [place] 0.01 0.01-0.08 [facility], [address] (Auto) 2019 [place] [address] 4:50pm Nucleated Red [place] 0 0-0.2 [facility], [address] Blood Cells % 2019 [place] [id number] 4:50pm Nucleated Red [place] 0 0 [facility], [address] Blood Cells # 2019 [place] [id number] 4:50pm Urine Color [place] YELLOW [facility], 10 4 2019 [place] [address] 3:06am Urine [place] SL CLOUDY CLEAR [facility], [address] Appearance 2019 [place] [address] 3:06am Urine Glucose [place] NEGATIVE NEGATIVE [facility], [address] ST (UA) 2019 [place] [address] 3:06am Urine [place] NEGATIVE NEGATIVE [facility], [address] Bilirubin 2019 [place] [address] 3:06am Urine Ketones January 1+(SMALL) NEGATIVE [facility], 104 2019 [place] [address] 3:06am Urine Specific [place] 1.021 1.003-1.030 [facility], [address] [place] 2019 [place] [address] 3:06am Urine Blood [place] 1+ (SMALL) NEGATIVE [facility], [address] [place] [address] 3:06am Urine pH January 6.500 5-9 [facility], 104 2019 [place] [address] 3:06am Urine Protein January 2+ (100 NEGATIVE [facility], 104 2019 mg/dL) [place] [address] 3:06am Urine [place] NORMAL 0.2-1.0 [facility], [address] Urobilinogen 2019 [place] [address] 3:06am Urine Nitrate January NEGATIVE NEGATIVE [facility], [address] 2019 [facility] [address] 3:06am Urine [place] 4+ NEGATIVE [facility], 104 Leukocyte 2019 [facility] [address] Esterase 3:06am Urine RBC January 1-5 0-5 [facility], 104 2019 [facility] [address]69 3:06am Urine WBC January >50 0-5 [facility], [address] 2019 [facility] [address] 3:06am Urine [place] 6-10 0-5 [facility], [address] Epithelial 2019 [facility] [address] Cells 3:06am Urine Bacteria January MODERATE None Detect [facility], 104 2019 (2+) [facility] [address] 3:06am Urine Casts January 6-10 None Detect [facility], [address] [facility] 2019 [facility] [address]321 3:06am Urine Culture January YES [facility], 104 Reflexed 2019 [facility] 28468 3:06am Urine [place] None seen None Detect [facility], [address] Pathogenic 2019 [facility] [address] Casts 3:06am POC Capillary January 73 70 - 110 [facility], 104 Blood Glucose 2019 [facility] [place] [address] (Chem) 7:32am Hemoglobin A1c January 6.2 4.0-6.0 [facility], 104 2019 [facility] 23037 4:50pm Rapid Plasma January NONREACTIVE NONREACTIVE [facility], 104 Reagin 2019 [facility] [address]24[address] 4:13am Hepatitis B January Negative Negative Performed [facility] A# [id number], [address] [facility], [address] Surface 2019 at: [place] [address] Antigen 4:13am [facility] [id number] [place], [place] [id number] ab Director: Benjamin Sanabria MD, Phone: [phone] Diagnostic Imaging Reports Report Dictated Date/Time Dictated By Status January 12, 2020 EL PEREZ MD complete d 5:09pm Patient: SOCRATES PA MR#: [id number] 15 : 1995 Ordering DrDenis: JANEL DIEZ MD Pt Status: REG CLI Pt Location: R [facility] Date/Time: 01/12/20 1545 Primary Care Physician: GISELE LACKEY Technologist(s): JOSSY WOOD Procedure(s): [id number] US/OB LIMITED ULTRASOUND Signed EXAM: US , Limited CLINICAL HISTORY: The patient is 24 ye ars old and is Female; 36 weeks growth, gestational diabetes GRIFFIN February 04 TECHNIQUE: Real-time limited ultrasoun d of the maternal uterus with image documentation. COMPARISON: November 11, 2019. FINDINGS: Fetus: Single fetus. EFW: EFW 3975 grams +/- 596 grams. BPD: Biparietal diameter 99.4 cm. Ab dominal circumference 37.1 cm. Head circumference 34.8 cm. Femur length 7.1 cm. Position: Breech presentation. Heart rate: 136 bpm. Biometrics: kidneys demonstrat e prominent renal pelves. Umbilical artery 44.7 cm/s PSV, R I 0.58. Placenta: Fundal placenta. KIERSTEN 19.7 cm, with the largest vertical pocket measuring 6.7 cm. Cervix: Translabial cervical length 1.5 cm. IMPRESSION: 1. Single live fetus with EGA 39 weeks and five days. Breech presentation. 2. Translabial cervical length 1.5 cm. 3. EFW 3975 grams +/- 596 grams. 4. kidneys demonstrate prominent renal pelves. Electronically signed by: El desai MD 01/12/2020 5:09 PM CDT Workst ation: [id number] Transcribed By: [employer] SIGNED < electronically signed by EL PEREZ MD> [id number] EL PEREZ MD Health Concerns Health Concerns may be documented in an alternate section. Advance Directives Advance Directive Response Recorded Date/Time Advance Directive on File No January 18 5:25am Patient/Family Given No January 19, 2020 5 :25am Education Material R/T Directives? 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 Immunizations Immunization Event Date Not Given Dose Director Building Lot Vac cine Reason Number Number Informatio n Statement (VIS) Deta il Measles, mumps, January 01 [place]ARP [id number] rubella 2019 TDaP January Other SANOFI PS 2019 Mental Status No Mental Status Information Available Medical Equipment No Medical Equipment Information available Insurance Providers Guarantor [employer] Address [address] [facility] [address] Contact Info. Home Phone: Payer Policy Id Coverage Id Subscriber's Subscriber Effective Expi ration Name Id Date Date [facility] [id number] [employer] [id number] [employer] [facility] Plan of Treatment Future Tests Future scheduled test information is unavailable Pending Tests Pending diagnostic test information is unavailable Future Visits Future appointment information is unavailable Referrals to Other Providers Referral information is unavailable Future Procedures Future procedure information is unavailable Future Medications Future medication information is unavailable Patient Instructions Delivery, Care After Hemorrhage Social History Smoking Status Status Date of Observation Never smoked tobacco (finding) January 19, 2020 5:25a m Assigned Sex Female Vital Signs Vital Reading Result Collection Date/Time Weight 256 [lb_av] January 19, 2020 6: 13am BMI (Body Mass Index) 42.6 kg/m2 January 19, 2020 6:13am Hospital Discharge Instructions Additional Instructions Instructions Physician Documentation Discharge Instructions No strenuous activity for six weeks. Take ibuprofen and/or Tylenol with codeine as needed for pain. May eat a regular diet. May take a shower or tub bath once or twice a day.~ Wash incision with soap and water. Take vitamin and iron once a day. Follow up with Dr. Diez or Rey in three weeks. Call the office if fever, heavy bleeding, worsening pain, or drainage from incision occur.
--- OUTSIDE RECORDS SUMMARY | 2020-01-30 15:43 | XMS REPORT | Encounter Summary ---
:1995 Author Care Team Providers Name Role Phone Karime Armendariz Family Mediator [phone] Reason for Visit NST BPP Instructions 1. screening streptococcus group B, cul ture, unspecified specimen CT + NG + TV, DNA, urine/s wab 2. Routine care urinalysis, dipstick 3. Gestational diabetes mellitus gestational diabetes: care instructions non-stress test 4. Candidiasis of vagina vaginal yeast infection: c are instructions fluconazole 150 mg tablet 5. Mild hyperemesis-not delivere d promethazine 25 mg tablet Discussion Note Discussed GBS and reason for testin g. Discussed movement and PTL symptoms. Reminded patient to take iron and PNV, stay well hydrated, and call if movement is decreased, or if regul ar contractions, bleeding, or symptoms of ruptured membranes occur. Plan of Care Reminders Provider Appointments BPP/NST Karime Pandey 01/05/2020 MD [place] 11:30AM OB Follow up Lado parisa Pandey 01/12/2020 MD [place] 3:00PM OB Sono Sonogram 01/12/2020 3:00PM Lab Streptococcus Med ical Diagnostic Group B, Culture, 12/29/2019 Laboratories ( [facility]) Unspecified Specimen Urinalysis, In-Ho use Results Dipstick 12/29/2019 CT + NG + TV, Med ical Diagnostic DNA, Urine/swab 12/29/2019 Laboratories ([facility]) Referral None recorded. Procedures None recorded. Surgeries None recorded. Imaging Non-stress Test I n-House Results 12/29/2019 Medications Name Start Date BD Ultra-Fine Shilpi Pen Needle 32 gauge x 532" ferrous gluconate 240 mg (27 mg iron) tablet Take 1 tablet every day by oral route. ferrous sulfate 325 mg (65 mg iron) tablet Take 1 tablet every day by oral route for 30 days. fluconazole 150 mg tablet Take 1 tablet every 72 hours by oral route. Levemir FlexTouch U-100 Insulin 100 unit/mL (3 mL) sub cutaneous pen promethazine 25 mg tablet Take 1 tablet every 6 hours by oral route as needed. True Metrix Glucose Meter True Metrix Glucose Test Strip Take 120 strips by miscell. route. TRUEplus Lancets 33 gauge Medications Administered None recorded. Vitals Height Weight BMI Blood Pressure 5 ft 5 in 253.4 lbs 42.2 kg/m2 112/67 mm[Hg] Results Lab Results Date Name Specimen Result Interpretation Description Value Range Status Address 12/22/2019 US, Obstetric, Amniotic Fluid 2 (15.4) In-House Biophysical Index Resul ts: For Profile Internal Use Only, Do N ot Delete/grabiel ge Tone 2 In-Ho use Results: F or Internal U se Only, Do N ot Delete/grabiel ge 2 In-House Breathing Results : For Internal U se Only, Do N ot Delete/grabiel ge Movement 2 I n-House Results: F or Internal U se Only, Do N ot Delete/grabiel ge 12/16/2019 US, Obstetric, Amniotic Fluid 2 (14.5) In-House Biophysical Index Resul ts: For Profile Internal Use Only, Do N ot Delete/grabiel ge Tone 2 In-Ho use Results: F or Internal U se Only, Do N ot Delete/grabiel ge 2 In-House Breathing Results : For Internal U se Only, Do N ot Delete/grabiel ge Movement 2 I n-House Results: F or Internal U se Only, Do N ot Delete/grabiel ge 12/16/2019 Urinalysis, Leukocytes Small In-House Dipstick Results: For Internal U se Only, Do N ot Delete/grabiel ge Nitrite negative In-Smooth se Results: F or Internal U se Only, Do N ot Delete/grabiel ge Urobilinogen .2 In- House Results: F or Internal U se Only, Do N ot Delete/grabiel ge Protein 30 In-House Results: F or Internal U se Only, Do N ot Delete/grabiel ge Ph 6.0 In-House Results: F or Internal U se Only, Do N ot Delete/grabiel ge Blood Hemolyzed: In-Smooth se Trace Results: F or Internal U se Only, Do N ot Delete/grabiel ge Specific 1.020 In-Hous e [place] Results: For Internal U se Only, Do [...] Do N ot Delete/grabiel ge Urinalysis, Leukocytes Moderate In-House Dipstick Results: For Internal U se [...] Only, Do N ot Delete/grabiel ge Blood Hemolyzed: In-Smooth se Trace Results: F or Internal U se Only, Do N ot Delete/grabiel ge Specific 1.015 In-Hous e [place] Results: For Internal U se Only, Do [...] ot Delete/grabiel ge Specific 1.025 In-Hous e [place] Results: For Internal U se Only, Do [...] Internal U se Only, Do N ot Delete/garbiel ge Urobilinogen .2 In- House Results: F [...] ot Delete/grabiel ge Specific 1.025 In-Hous e [place] Results: For Internal U se Only, Do [...] Internal Use Onl y DO Not Delete/Merge [id number] 12/16/2019 US, Obstetric, Biophysical Profile In-Ho use Results For Internal Use Onl y DO Not Delete/Merge [id number] 12/22/2019 US, Obstetric, Biophysical Profile In-Ho use Results For Internal Use Onl y DO Not Delete/Merge [id number] 12/29/2019 Non-stress Test In-House Results For Internal Use Onl y DO Not Delete/Merge [id number] Vaccine List Vaccine Type influenza, injectable, quadrivalent 06/16/2019 Social History Tobacco Smoking Status Former Smoker Past Encounters 12/29/2019 Screening; Routine C are; Gestational Diabetes Mellitus; Candidiasis of Vagina; Mild Hyperemesis-not Delivered Karime Armendariz MD: [address] [facility] [address] [facility], [place] [address], Ph. [phone] 12/22/2019 Routine Care; Gestational Diab etes Mellitus; Rubella Non-immune; Pyelectasis [facility]iz [facility] [address] [facility] [address] [facility], [place] [address], Ph. [phone] 12/16/2019 Routine Care; Gestational Diab etes Mellitus; Pyelectasis; Rubella Non-immune Karime Armendariz MD: [address], [place] [address], Ph. [phone] 12/09/2019 Routine Care; Pyelectasi s; Gestational Diabetes Mellitus; Rubella Non-immune Karime Armendariz MD: [address], [place] [address], Ph. [phone] History of Present Illness None recorded. Review of Systems None recorded. Physical Exam None recorded.
--- OUTSIDE RECORDS SUMMARY | 2020-01-30 15:43 | XMS REPORT | Encounter Summary ---
:1995 Author Care Team Providers Name Role Phone Karime Armendariz Director Of Student Financial Services [phone] Reason for Visit F/U ob visit Instructions 1. Routine care US, obstetric, limited urinalysis, dipstick 2. pyelectasis 3. Gestational diabetes mellitus gestational diabetes: care instructions 4. Rubella non-immune Discussion Note: None recorded. Plan of Care Reminders Provider Appointments BPP/NST Karime Pandey 12/29/2019 MD Kala 9:45AM BPP/CJT Sonogram 12/29/2019 10:00AM Lab Urinalysis, In-Ho use Results Dipstick 12/09/2019 Referral None recorded. Procedures None recorded. Surgeries None recorded. Imaging US, In-House Re karen Obstetric, Limited 12/09/2019 Medications Name Start Date BD Ultra-Fine Shilpi [...] BMI Blood Pressure 5 ft 5 in 242 lbs 40.3 kg/m2 134/84 mm[Hg] Results Lab Results Date Name Specimen Result Interpretation Description Value Range Status Address 12/22/2019 US, Amniotic 2 (15.4) In-House Obstetric, Fluid Index R esults: For Biophysical Inter nal Use Profile Only, Do Not Delete/grabiel ge Tone 2 In-Ho use Results: F or Internal U se Only, Do N ot Delete/grabiel ge 2 In-House Breathing Results : For Internal U se Only, Do N ot Delete/grabiel ge 2 In-House Movement Results: For Internal U se Only, Do N ot Delete/grabiel ge 12/16/2019 US, Amniotic 2 (14.5) In-House Obstetric, Fluid Index R esults: For Biophysical Inter nal Use Profile Only, Do Not Delete/grabiel ge Tone 2 In-Ho use Results: F or Internal U se Only, Do N ot Delete/grabiel ge 2 In-House Breathing Results : For Internal U se Only, Do N ot Delete/grabiel ge 2 In-House Movement Results: For Internal U se Only, Do [...] ot Delete/grabiel ge Specific 1.020 In-Hous e [place] Results: For Internal U se Only, Do [...] se Only, Do N ot Delete/grabiel ge 11/13/2019 Glucose No observation [place] Tolerance recorded. Maia onal Test, 3-Hour [facility] ([facility]) (Xray): 60 0 Hospital C ir, [place] 11/11/2019 CBC W/ Auto Normal White Blood 11.4 K/uL 4.0-11 . Final [place] Diff Count 5 K/uL [facility] (Id b): [address] [place] [address] Low Red Blood 3.59 M/uL 3.80-5. Final [place] Count 20 M/uL [facility] (Id b): [address] [place] [address] Low Hemoglobin 10.2 g/dL 10.5-15 Final [place] .7 g/dL [facility] (Id b): [address] [place] [address] Low Hematocrit 32.0 % 34.0-50 Final Senior sharon .0 % [facility] (Id b): [address] [place] [address] Normal Mean 89.1 fL 86-100 Final [place] Corpuscular fL Regio nal Volume [facility] (Id b): [address] [place] [address] Normal Mean 28.4 pg 26.2-33 Final [place] Corpuscular .4 pg Regio nal Hemoglobin [facility] (Id b): [address] [place] [address] Normal Mean 31.9 g/dL 30-34 Final [place] Corpuscular g/dL Regio nal HGB [facility] (Id b): [address] [place] [address] Normal Red Cell 13.1 % 12.0-15 Final [place] consumer lender Distribution .5 % Maia onal [facility] (Id b): [address] [place] [address] Normal Platelet 205 K/uL 165-450 Final Senior sharon Count K/uL [facility] (Id b): [address] [place] [address] Normal Mean Platelet 10.2 fL 9.4-12. Final [place] Volume 6 fL [facility] (Id b): [address] [place] [address] Normal Neutrophils % 75.5 % 44.4-80 Correc [place] .1 % rossana [facility] (Id b): [address] [place] [address] High Ig% 1.0 % 0.0-0.4 Correc [place] % rossana [facility] (Id b): [address] [place] [address] Normal Lymphocyte% 15.8 % 10.0-50 Final [place] .0 % [facility] (Id b): [address] [place] [address] Normal [place] % 7.1 % 3.6-12. Final [place] 0 % [facility] ([place] b): [address] [place] [address] Normal Eos % 0.4 % 0.0-5.4 Final [place] % [facility] ([place]): [address] [place] [address] Normal Basophil % 0.2 % 0.1-1.2 Final Senior sharon % [facility] ([place]): [address] [place] [address] High Absolute 8.62 K/uL 1.56-6. Final [place] Neutrophil 13 K/uL [facility] ([place]): [address] [place] [address] High Ig# 0.1 K/uL 0.0-0.0 Corre [place] 3 K/uL [facility] ([place]): [address] [place] [address] Normal Lymph # 1.8 K/uL 1.18-3. Correc [place] 74 K/uL [facility] ([place]): [address] [place] [address] Normal [place] # 0.81 K/uL 0.24-0. Final [place] 86 K/uL [facility] ([place] b): [address] [place] [address] Normal Eos # 0.05 K/uL 0.04-0. Final [place] consumer lender 36 K/uL [facility] ([place] b): [address] [place] [address] Normal Basophil # 0.02 K/uL 0.01-0. Correc [place] 08 K/uL [facility] ([place] b): [address] [place] [address] Normal Nrbc% 0 /100 WBC 0-0.2 Final [place] consumer lender /100 [facility] WBC [facility] ([place] b): [address] [place] [address] Normal Nrbc# 0 K/uL 0 K/uL Final [place] [facility] ([place]): [address] [place] [address] 11/11/2019 Differential Normal Neutrophils I ncomp [place] Panel, Blood [facility] ([place]): [address] [place] [address] Normal Band Incomp [place] [facility] ([place]): [address] [place] [address] Normal Lymphocyte Incomp [facility] ([place]): [address] [place] [address] Normal [facility]ocyte [facility] ([place] [facility] [address] [place] [address] Normal Eosinophil Incomp [facility] ([place]): [address] [place] [address] Normal Basophil Incomp [place] [facility] ([place]): [address] [place] [address] Normal Platelet Incomp [place] [facility] ([place] b): [address] [place] [address] 11/11/2019 Antibody Bld Gp Ab Scn negative F inal [place] Screen, Serum Serpl Ql R egional or Plasma [facility] (Id b): [address] [place] [address] 11/11/2019 RPR (Rapid Normal Rpr nonreactive nonreac Fin al [place] Plasma [facility] (Id b): [address] [place] [address] 11/11/2019 HIV (1+2) Ab Normal HIV P24 Ag nonreac F inal [place] Screen, Serum [facility] Reg [facility] (Id b): [address] [place] [address] Normal HIV-1/2 Ab nonreac Final Senior sharon [facility] (Id b): [address] [place] [address] 11/11/2019 Trichomonas S ABNORMA Trichomonas positive Final [facility] Vaginalis W L Vaginalis by D iagnostic DNA, PCR, A Real-time PCR Laboratories Unspecified B (Reflex to ( Mdlab): 4329 Specimen - Metronidazole [address], 1 Resistance) [place] 11/11/2019 Glucose No observation [place] Tolerance recorded. Maia onal Test, 1-Hour [facility] (Id b): [address] [place] [address] Urinalysis, Leukocytes Small In-House Dipstick Results: For [...] ot Delete/grabiel ge Specific 1.025 In-Hous e [place] Results: For Internal U se Only, Do [...] ot Delete/grabiel ge Specific 1.025 In-Hous e [place] Results: For Internal U se Only, Do [...] Only, Do N ot Delete/grabiel ge US, No observation In -House Obstetric, recorded. Res ults: For Limited Internal Use Only, Do N ot Delete/grabiel ge Urinalysis, [...] Only, Do N ot Delete/grabiel ge Specific 1.030 In-Hous e [place] Results: For Internal U se Only, Do N ot Delete/grabiel ge Ketone Trace In-House Results: F or Internal U se Only, Do N ot Delete/grabiel ge Bilirubin Negative In-H ouse Results: F or Internal U se Only, Do N ot Delete/grabiel ge Glucose Negative In-Smooth se Results: F or Internal U se Only, Do N ot Delete/grabiel ge Appearance Slightly In- House Cloudy Results: F or Internal U se Only, [...] 06/03/2000 Eye Surgery Information not avai lable 11/10/2019 US, Obstetric, Limited [facility] (Scheduling) [address] [place] [address] (Work Place) 12/09/2019 US, Obstetric, Limited In-House Results For Internal Use Onl y DO Not Delete/Merge [id number] Vaccine List Vaccine Type influenza, injectable, quadrivalent 06/16/2019 Social History Tobacco Smoking Status Former Smoker Past Encounters 12/22/2019 Routine Care; Gestational Diab etes Mellitus; Rubella Non-immune; Pyelectasis Karime Armendariz MD: [address] [facility], [place], [place] [id number], Ph. [phone] 12/16/2019 Routine Care; Gestational Diab etes Mellitus; Pyelectasis; Rubella Non-immune Karime Armendariz MD: [address], [place], [place] [id number], Ph. [phone] 12/09/2019 Routine Care; Pyelectasi s; Gestational Diabetes Mellitus; Rubella Non-immune Karime Armendariz MD: [address] [facility] [address], [place] [address], Ph. [phone] 11/11/2019 Routine Care; Screen ing; Pyelectasis; Rubella Non- immune; Trichomonal Vaginitis in Karime Armendariz MD: [address] [facility] [address], [place] [address], Ph. [phone] History of Present Illness None recorded. Review of Systems None recorded. Physical Exam None recorded.
--- OUTSIDE RECORDS SUMMARY | 2020-01-30 15:43 | XMS REPORT | Encounter Summary ---
:1995 Author Care Team Providers Name Role Phone Karime Armendariz Cnc Mill Operator [phone] Reason for Visit NST BPP Instructions 1. Gestational diabetes mellitus gestational diabetes: care instructions US, obstetric, biophysical profile 2. pyelectasis 3. Routine care urinalysis, dipstick Discussion Note: None recorded. Plan of Care Reminders Provider Appointments OB Follow up La anna Dannie 01/12/2020 MD Kala 3:00PM OB Sono Sonogram 01/12/2020 3:00PM Lab Urinalysis, In-Ho use Results Dipstick 01/05/2020 Referral None recorded. Procedures None recorded. Surgeries None recorded. Imaging US, Obstetric, In -House Results Biophysical Profile 01/05/2020 Medications Name Start Date BD Ultra-Fine Shilpi [...] BMI Blood Pressure 5 ft 5 in 254.4 lbs 42.3 kg/m2 131/73 mm[Hg] Results Lab Results Date Name Specimen [...] ot Delete/grabiel ge Specific 1.020 In-Hous e [place] Results: For Internal U se Only, Do [...] Do N ot Delete/grabiel ge Urinalysis, Leukocytes Large In-House Dipstick Results: For Internal U se [...] Only, Do N ot Delete/grabiel ge Blood Small In-House Results: F or Internal U se Only, Do N ot Delete/grabiel ge Specific 1.025 In-Hous e [place] Results: For Internal U se Only, Do [...] ot Delete/grabiel ge Specific 1.015 In-Hous e [place] Results: For Internal U se Only, Do [...] ot Delete/grabiel ge Specific 1.025 In-Hous e [place] Results: For Internal U se Only, Do [...] ot Delete/grabiel ge Specific 1.025 In-Hous e [place] Results: For Internal U se Only, Do [...] Internal Use Onl y DO Not Delete/Merge [id number] 12/16/2019 US, Obstetric, Biophysical Profile In-Ho use Results For Internal Use Onl y DO Not Delete/Merge [id number] 12/22/2019 US, Obstetric, Biophysical Profile In-Ho use Results For Internal Use Onl y DO Not Delete/Merge [id number] 12/29/2019 Non-stress Test In-House Results For Internal Use Onl y DO Not Delete/Merge [id number] 01/05/2020 US, Obstetric, Biophysical Profile In-Ho use Results For Internal Use Onl y DO Not Delete/Merge [id number] Vaccine List Vaccine Type influenza, injectable, quadrivalent 06/16/2019 Social History Tobacco Smoking Status Former Smoker Past Encounters 01/05/2020 Gestational Diabetes Mellitus; Irma lectasis; Routine Care Karime Armendariz MD: [address], [place], [place] [address], Ph. [phone] 12/29/2019 Screening; Routine C are; Gestational Diabetes Mellitus; Candidiasis of Vagina; Mild Hyperemesis-not Delivered Karime Armendariz MD: [address], [place], [place] [id number], Ph. [phone] 12/22/2019 Routine Care; Gestational Diab etes Mellitus; Rubella Non-immune; Pyelectasis Karime Armendariz MD: [address], [place], [place] [address], Ph. [phone] 12/16/2019 Routine Care; Gestational Diab etes Mellitus; Pyelectasis; Rubella Non-immune Karime Armendariz MD: [address], [place] [address], Ph. [phone] 12/09/2019 Routine Care; Pyelectasi s; Gestational Diabetes Mellitus; Rubella Non-immune Karime Armendariz MD: [address], [place] [address], Ph. [phone] History of Present Illness None recorded. Review of Systems None recorded. Physical Exam None recorded.
--- OUTSIDE RECORDS SUMMARY | 2020-01-30 15:43 | XMS REPORT | Encounter Summary ---
:1997 Author Care Team Providers Name Role Phone Karime Armendariz Regulation Supervisor [phone] Reason for Visit ob 36 week visit Instructions 1. Routine care US, obstetric, limited - 3 6 WK OB U/S urinalysis, dipstick 2. Trichomonal vaginitis in preg [place] tinidazole 500 mg tablet 3. Gestational diabetes mellitus gestational diabetes: care instructions non-stress test Discussion Note: None recorded. Plan of Care Reminders Provider Appointments BPP/NST Karime Pandey 01/19/2020 MD Kala 2:45PM BPP/NST Sonogram 01/19/2020 3:00PM Lab Urinalysis, In-Ho use Results Dipstick 01/12/2020 Referral None recorded. Procedures None recorded. Surgeries None recorded. Imaging US, [place] R egional Obstetric, Limited 01/12/2020 [facility]Xray) Non-stress In-Smooth se Results Test 01/12/2020 Medications Name Start Date BD Ultra-Fine Shilpi [...] 6 hours by oral route as needed. tinidazole 500 mg tablet Take 1 tablet twice a day by oral route for 2 days. True Metrix Glucose Meter True Metrix Glucose Test Strip Take 120 strips by miscell. route. TRUEplus Lancets 33 gauge Medications Administered None recorded. Vitals Height Weight BMI Blood Pressure 5 ft 5 in 253 lbs 42.1 kg/m2 123/76 mm[Hg] Results Lab Results Date Name Specimen Result Interpretation Description Value Range Status Address 01/05/2020 US, Obstetric, Amniotic 2 (16.9) In-House Biophysical Fluid Index Results: For Profile Internal Use Only, Do N ot Delete/grabiel ge Tone 2 In-Ho use Results: F or Internal U se Only, Do N ot Delete/grabiel ge 2 In-House Breathing Results : For Internal U se Only, Do N ot Delete/grabiel ge 2 In-House Movement Results: For Internal U se Only, Do N ot Delete/grabiel ge 12/29/2019 CT + NG + TV, SW Normal Chlamydia negative Final Medical DNA, Urine/swab AB Trachomatis by Diagnostic -1 Real-time PCR Lab oratories (Reflex to (Mdlab ): [address], Resistance by [place] Pyrosequencing ) SW ABNORMAL Trichomonas positive Final Medical AB Vaginalis by Diag nostic -1 Real-time PCR Lab oratories (Reflex to (Mdlab ): [address], Resistance) [place] SW Normal Neisseria negative Final Medi richi AB Gonorrhoeae by Di agnostic -1 Real-time PCR Lab oratories (Reflex to (Mdlab ): [address], Resistance by [place] con[place] Molecular Analysis) 12/29/2019 Streptococcus SW ABNORMAL Group B positive Final Medical Group B, AB Streptococcus D iagnostic Culture, -1 (Gbs) by Labor atories Unspecified Real-time PCR (Mdlab): [address] Spec[address] , [place] SW ABNORMAL Group B positive Final Medi richi AB Streptococcus Adeline gnostic -1 (Gbs) Laboratori es Antibiotic (Mdlab ): [address], PCR [place] 12/22/2019 US, Obstetric, Amniotic 2 (15.4) In-House Biophysical Fluid Index Results: For Profile Internal Use Only, Do N ot Delete/grabiel ge Tone 2 In-Ho use Results: F or Internal U se Only, Do N ot Delete/grabiel ge 2 In-House Breathing Results : For Internal U se Only, Do N ot Delete/grabiel ge 2 In-House Movement Results: For Internal U se Only, Do N ot Delete/grabiel ge 12/16/2019 US, Obstetric, Amniotic 2 (14.5) In-House Biophysical Fluid Index Results: For Profile Internal Use Only, Do N [...] Only, Do N ot Delete/grabiel ge Blood Hemolyzed In-Hous e : Trace Results: For Internal U se Only, Do N ot Delete/grabiel ge Specific 1.020 In-Hous e [place] Results: For Internal U se Only, Do [...] ot Delete/grabiel ge Specific 1.030 In-Hous e [place] Results: For Internal U se Only, Do N ot Delete/grabiel ge Ketone Negative In-Hous e Results: F or Internal U se Only, Do N ot Delete/grabiel ge Bilirubin Negative In-H ouse Results: F or Internal U se Only, Do N ot Delete/grabiel ge Glucose 100 In-House Results: F or Internal U se Only, Do N ot Delete/grabiel ge Appearance Clear In-Ho use Results: F or Internal U se Only, Do N ot Delete/grabiel ge Color Yellow In-House Results: F or Internal U se Only, Do N ot Delete/grabiel ge Non-stress Test Reactive Yes In-House Results: F or Internal U se Only, Do N ot Delete/grabiel ge Contractions No In- House Results: F or Internal U [...] ot Delete/grabiel ge Specific 1.025 In-Hous e [place] Results: For Internal U se Only, Do [...] Only, Do N ot Delete/grabiel ge Blood Hemolyzed In-Hous e : Trace Results: For Internal U se Only, Do N ot Delete/grabiel ge Specific 1.015 In-Hous e [place] Results: For Internal U se Only, Do [...] ot Delete/grabiel ge Specific 1.025 In-Hous e [place] Results: For Internal U se Only, Do [...] 06/03/2000 Eye Surgery Information not avai lable 12/16/2019 US, Obstetric, Biophysical Profile In-Ho use Results For Internal Use Onl y DO Not Delete/Merge [id number] 12/22/2019 US, Obstetric, Biophysical Profile In-Ho use Results For Internal Use Onl y DO Not Delete/Merge [id number] 01/05/2020 US, Obstetric, Biophysical Profile In-Ho use Results For Internal Use Onl y DO Not Delete/Merge [id number] 01/12/2020 US, Obstetric, Limited [facility] (Labs) (Xray) [address] [place] [address] (Work Place) 01/12/2020 Non-stress Test In-House Results For Internal Use Onl y DO Not Delete/Merge [id number] Vaccine List Vaccine Type influenza, injectable, quadrivalent 06/16/2019 Social History Tobacco Smoking Status Former Smoker Past Encounters 01/12/2020 Routine Care; Trichomonal Vagi nitis in ; Gestational Diabetes Mellitus Karime Armendariz MD: [address] [facility] [address], [place], [place] [address], Ph. [phone] 01/05/2020 Gestational Diabetes Mellitus; Irma lectasis; Routine Care Karime Armendariz MD: [address] [facility] [address], [place] [address], Ph. [phone] 12/29/2019 Screening; Routine C are; Gestational Diabetes Mellitus; Candidiasis of Vagina; Mild Hyperemesis-not Delivered Karime Armendariz MD: [address] [facility] [address], [place] [address], Ph. [phone] 12/22/2019 Routine Care; Gestational Diab etes Mellitus; Rubella Non-immune; Pyelectasis Karime Armendariz MD: [address], [place], [place] [address], Ph. [phone] 12/16/2019 Routine Care; Gestational Diab etes Mellitus; Pyelectasis; Rubella Non-immune Karime Armendariz MD: [address], [place] [address], Ph. [phone] History of Present Illness None recorded. Review of Systems None recorded. Physical Exam None recorded.
[2020-01-30 18:08] LABS: Absolute Lymphocytes (CBC) 1.8 K/uL (0.7-4.9); Lymphocytes % 22.8 % (15.3-44.8); MPV 8.8 fL (7.6-11.3); RBC Red Blood Cell Count 4.28 M/uL (3.86-4.86)
[2020-01-30 18:17] LABS: Urine Blood TRACE (NEG); Urine Glucose NEGATIVE (NEG); Urine Protein NEGATIVE (NEG); Urine Specific Gravity 1.015 (1.005-1.030)
[2020-01-30 18:23] LABS: ALT/SGPT 14 U/L (12-78); AST/SGOT 8 U/L (15-37); Albumin 3.2 g/dL (3.4-5.0); Alkaline Phosphatase 138 U/L (45-117); BUN Blood Urea Nitrogen 8 mg/dL (7-18); Bicarbonate 25 mmol/L (21-32); Bilirubin Direct < 0.1 mg/dL (0-0.2); Bilirubin Total 0.4 mg/dL (0.2-1.0); Glucose Level 77 mg/dL (74-106); Lipase 54 U/L (73-393); Potassium 3.7 mmol/L (3.5-5.1); Protein, Total 7.3 g/dL (6.4-8.2); Sodium Level 143 mmol/L (136-145)
[2020-01-30 18:32] LABS: Urine Bacteria <20 /HPF (<20); Urine Culture Reflex Order REFLEXED; Urine RBC <5 /HPF (NONE SEEN); Urine Trichomonas PRESENT (NONE SEEN)
--- NOTE | 2020-01-30 19:00 | RAD REPORT ---
EXAM DESCRIPTION: CT - Abdomen Pelvis W Contrast - 01/30/2020 6:33 pm CLINICAL HISTORY: Abd pain, patient complains of bilateral flank pain radiating into the pelvis, pos tpartum approximately 2 weeks COMPARISON: No comparisons TECHNIQUE: Biphasic, helical CT imaging of the abdomen and pelvis was performed following 100 ml non -ionic IV contrast. No oral contrast administered. All CT scans are performed using dose optimization technique as appropriate and may include automated exposure control or mA/KV adjustment according to patient size. FINDINGS: No suspicious findings in the lung bases. The liver, spleen, and pancreas show no suspicious findings. Gallbladder and biliary tree are also wi thout suspicious finding. Renal function is symmetric. No pyelonephritis or acute renal parenchymal process identifiable. Mild bilateral hydronephrosis is present down to the pelvic inlet level. More distal ureters are difficult to visualize. There is extrinsic compression on the ureters from the still enlarged uterus. No abnor mal air or fluid within the endometrial cavity. Air is present in the vaginal vault which is not outs fernando of normal. Urinary bladder is fully contracted precluding accurate assessment. Ovaries are not sh arply demarcated. There is fluid in stranding in the lower pelvis. This volume is not outside of norm al for status. No adrenal abnormalities. No stomach or acute small bowel finding seen. Colon is mostly decompressed. The appendix is not clear ly defined. Suspicion for appendicitis is low. No free air or pneumatosis. No abscess. No hernia, m ass or bulky lymphadenopathy. No suspicious bony findings. IMPRESSION: Post stranding in the subcutaneous fat and anterior abdominal wall well within normal limits. Still enlarged uterus shows no acute finding. Fluid in stranding in the peritoneal cavity are within range of normal for . This does resul t in diminished visualization of the ovaries. The appendix is not clearly defined. Appendicitis is not suspected. No acute GI process seen. Mild bilateral hydronephrosis, without obstructing calculus, believed be from extrinsic compression b y the still enlarged uterus. Calcification in the left pelvis is not believed to be within the ureter . No abscess, free air or other surgically emergent finding.
--- NOTE | 2020-01-30 19:02 | ER ---
Nurse's Notes [facility] Name: Lluvia Dumont Age: 24 yrs Sex: Female : 1995 Arrival Date: 01/30/2020 Time: 15:42 Bed 20 Private MD: Diagnosis: Trichomoniasis Presentation: 01/29 15:44 Chief complaint: Patient states: "I was checking out at [facility] and I got the worst ss pains on the sides of my stomach. It felt like I was being stabbed. I also have this bubble on top of my vagina and they said it was a busted blood vessel from my C section 11 days ago, but it's getting harder." Pt reports her abd pain began 1-2 hours ago and has gotten a little better since it started. Coronavirus screen: Client denies travel out of the [place] in the last 14 days. Ebola Screen: Patient denies exposure to infectious person. Patient denies travel to an Ebola-affected area in the 21 days before illness onset. Initial Sepsis Screen: Does the patient meet any 2 criteria? No. Patient's initial sepsis screen is negative. Does the patient have a suspected source of infection? No. Patient's initial sepsis screen is negative. Risk Assessment: Do you want to hurt yourself or someone else? Patient reports no desire to harm self or others. Onset of symptoms was January 30, 2020. 15:44 Method Of Arrival: Ambulatory ss 15:44 Acuity: GRICELDA 3 ss Historical: - Allergies: 15:48 No Known Allergies; ss - PMHx: 15:48 Glaucoma; ss - PSHx: 15:48 eye; ; ss - Immunization history:: Adult Immunizations up to date. - Social history:: Smoking status: Patient denies any tobacco usage or history of. Screenin:45 Abuse screen: Denies threats or abuse. Nutritional screening: No deficits noted. em Tuberculosis screening: No symptoms or risk factors identified. Fall Risk None identified. Assessment: 17:45 General: Appears in no apparent distress. comfortable, Behavior is calm, cooperative, em appropriate for age, Denies fever. Pain: Complains of pain in right lower quadrant and left lower quadrant Pain currently is 3 out of 10 on a pain scale. Neuro: Level of Consciousness is awake, alert, obeys commands, Oriented to person, place, time, situation, Appropriate for age. Cardiovascular: Capillary refill < 3 seconds Patient's skin is warm and dry. Respiratory: Airway is patent Respiratory effort is even, unlabored, Respiratory pattern is regular, symmetrical. GI: Abdomen is round non-distended, Bowel sounds present X 4 quads. Abd is soft and non tender X 4 quads. Reports nausea, Patient currently denies vomiting. : Reports burning with urination. Derm: Skin is intact, is healthy with good turgor, Skin is pink, warm \\T\\ dry. Musculoskeletal: Capillary refill < 3 seconds, Range of motion: intact in all extremities. 18:49 Reassessment: Patient appears in no apparent distress at this time. Patient and/or em family updated on plan of care and expected duration. Pain level reassessed. Patient is alert, oriented x 3, equal unlabored respirations, skin warm/dry/pink. 19:29 Reassessment: Patient appears in no apparent distress at this time. Patient and/or jb4 family updated on plan of care and expected duration. Pain level reassessed. Patient is alert, oriented x 3, equal unlabored respirations, skin warm/dry/pink. pt verbalized understanding of D/c and follow up instructions. Denies questions or concerns. Ambulated out of ED with steady gait. Vital Signs: 15:44 Pulse 60; Resp 15; Temp 97.8(TE); Pulse Ox 97% on R/A; Weight 110.22 kg; Height 5 ft. 5 ss in. (165.10 cm); Pain 3/10; 18:51 BP 147 / 76; Pulse 88; Resp 18; Pulse Ox 99% on R/A; em 15:44 Body Mass Index 40.44 (110.22 kg, 165.10 cm) ED Course: 15:42 Patient arrived in ED. mr 15:47 Triage completed. ss 15:48 Arm band placed on left wrist. ss 15:53 [facility] Anderson [facility]C [facility] kb 15:53 Georgia Ramirez MD is Attending Physician. kb 17:20 Phill Morin, RN is Primary Nurse. em 17:45 Patient has correct armband on for positive identification. Bed in low position. Call em light in reach. Pulse ox on. NIBP on. 17:45 Inserted saline lock: 20 gauge in right antecubital area, using aseptic technique. em Blood collected. 17:45 Urine collected: clean catch specimen, cloudy. em 18:32 CT Abd/Pelvis - IV Contrast Only In Process Unspecified. EDMS 19:29 No provider procedures requiring assistance completed. IV discontinued, intact, jb4 bleeding controlled, No redness/swelling at site. Pressure dressing applied. Administered Medications: 19:25 Drug: Flagyl 2 grams Route: PO; jb4 19:29 Follow up: Response: Medication administered at discharge. jb4 Outcome: 19:02 Discharge ordered by . kb 19:29 Discharged to home ambulatory. jb4 19:29 Condition: stable 19:29 Discharge instructions given to patient, Instructed on discharge instructions, follow up and referral plans. Demonstrated understanding of instructions, follow-up care. 19:33 Patient left the ED. jb4 Signatures: Dispatcher [employer] EDTX Adilene Anderson, PROJECT CONTROLS SCHEDULER-C PROJECT CONTROLS SCHEDULER-CkKhushboo Mejia mr Phill Morin RN MAHESH em Haylee Dumont RN RN ss Bryson, James, MAHESH RN jb4 Corrections: (The following items were deleted from the chart) 15:48 15:48 PMHx: Anemia; ss ss
--- NOTE | 2020-01-30 19:02 | EDPHYS ---
Physician Documentation [facility] Name: Lluvia Dumont Age: 24 yrs Sex: Female : 1995 Arrival Date: 01/30/2020 Time: 15:42 Bed 20 Private MD: ED Physician Georgia Ramirez HPI: 01/29 18:04 This 24 yrs old Female presents to ER via Ambulatory with complaints of kb Abdominal Pain. 18:04 The patient presents with abdominal pain lateral abd bilaterally. Onset: The kb symptoms/episode began/occurred today. The symptoms do not radiate. Associated signs and symptoms: none. The symptoms are described as constant, stabbing. Modifying factors: The symptoms are alleviated by nothing, the symptoms are aggravated by nothing. Severity of pain: At its worst the pain was moderate in the emergency department the pain is unchanged. The patient has not experienced similar symptoms in the past. The patient has not recently seen a physician. Pt reports she had a 11 days ago. Today she started having pain to both sides of abd. States she has also had a knot to suprapubic area that she noticed after her and it has gotten bigger. Follow up with OB is on Saturday. Historical: - Allergies: 15:48 No Known Allergies; ss - PMHx: 15:48 Glaucoma; ss - PSHx: 15:48 eye; ; ss - Immunization history:: Adult Immunizations up to date. - Social history:: Smoking status: Patient denies any tobacco usage or history of. ROS: 18:04 Constitutional: Negative for fever, chills, and weight loss, Cardiovascular: Negative kb for chest pain, palpitations, and edema, Respiratory: Negative for shortness of breath, cough, wheezing, and pleuritic chest pain, Back: Negative for injury and pain, MS/Extremity: Negative for injury and deformity, Skin: Negative for injury, rash, and discoloration, Neuro: Negative for headache, weakness, numbness, tingling, and seizure. 18:04 Abdomen/GI: Positive for abdominal pain, Negative for nausea, vomiting, and diarrhea. Exam: 18:04 Constitutional: This is a well developed, well nourished patient who is awake, alert, kb and in no acute distress. Head/Face: Normocephalic, atraumatic. Chest/axilla: Normal chest wall appearance and motion. Nontender with no deformity. No lesions are appreciated. Cardiovascular: Regular rate and rhythm with a normal S1 and S2. No gallops, murmurs, or rubs. Normal PMI, no JVD. No pulse deficits. Respiratory: Lungs have equal breath sounds bilaterally, clear to auscultation and percussion. No rales, rhonchi or wheezes noted. No increased work of breathing, no retractions or nasal flaring. Back: No spinal tenderness. No costovertebral tenderness. Full range of motion. Skin: Warm, dry with normal turgor. Normal color with no rashes, no lesions, and no evidence of cellulitis. MS/ Extremity: Pulses equal, no cyanosis. Neurovascular intact. Full, normal range of motion. Neuro: Awake and alert, GCS 15, oriented to person, place, time, and situation. Cranial nerves II-XII grossly intact. Motor strength 5/5 in all extremities. Sensory grossly intact. Cerebellar exam normal. Normal gait. 18:04 Abdomen/GI: Inspection: abdomen appears normal, Bowel sounds: normal, in all quadrants, Palpation: moderate abdominal tenderness, in the right lower quadrant. Vital Signs: 15:44 Pulse 60; Resp 15; Temp 97.8(TE); Pulse Ox 97% on R/A; Weight 110.22 kg; Height 5 ft. 5 ss in. (165.10 cm); Pain 3/10; 18:51 BP 147 / 76; Pulse 88; Resp 18; Pulse Ox 99% on R/A; em 15:44 Body Mass Index 40.44 (110.22 kg, 165.10 cm) ss MDM: 17:02 Patient medically screened. kb 18:04 Data reviewed: vital signs, nurses notes. Data interpreted: Pulse oximetry: on room air kb is 97 %. Interpretation: normal. 19:01 Counseling: I had a detailed discussion with the patient and/or guardian regarding: the kb historical points, exam findings, and any diagnostic results supporting the discharge/admit diagnosis, lab results, radiology results, the need for outpatient follow up, a family practitioner, to return to the emergency department if symptoms worsen or persist or if there are any questions or concerns that arise at home. 01/29 17:08 Order name: Basic Metabolic Panel; Complete Time: 18:27 kb 01/29 17:08 Order name: CBC with Diff; Complete Time: 18:13 kb 01/29 17:08 Order name: Hepatic Function; Complete Time: 18:27 kb 01/29 17:08 Order name: Lipase; Complete Time: 18:27 kb 01/29 18:02 Order name: Urine Microscopic Only; Complete Time: 18:36 em 01/29 18:12 Order name: Urine Dipstick--Ancillary (enter results); Complete Time: 18:27 eb 01/29 17:08 Order name: Urine Dipstick-Ancillary (obtain specimen); Complete Time: 18:01 kb 01/29 17:08 Order name: IV Saline Lock; Complete Time: 18:01 kb 01/29 17:08 Order name: Labs collected and sent; Complete Time: 18:01 kb 01/29 17:08 Order name: CT Abd/Pelvis - IV Contrast Only; Complete Time: 19:00 kb 01/29 18:12 Order name: Urine --Ancillary (enter results); Complete Time: 18:27 eb 01/29 18:34 Order name: Urine Culture EDNH 01/29 19:17 Order name: CREATININE WHOLE BLOOD; Complete Time: 19:20 EDMS Administered Medications: 19:25 Drug: Flagyl 2 grams Route: PO; jb4 19:29 Follow up: Response: Medication administered at discharge. jb4 Disposition: 01/30/20 19:02 Discharged to Home. Impression: Trichomoniasis. - Condition is Stable. - Discharge Instructions: Trichomoniasis. - Medication Reconciliation Form, Thank You Letter, Antibiotic Education, Prescription Opioid Use form. - Follow up: Emergency Department; When: As needed; Reason: Worsening of condition. Follow up: Private Physician; When: 2 - 3 days; Reason: Recheck today's complaints, Continuance of care, Re-evaluation by your physician. Signatures: Dispatcher [employer] EDMS Adilene Anderson, Haylee Claros RN RN ss Bryson, James, RN RN jb4 Corrections: (The following items were deleted from the chart) 15:48 15:48 PMHx: Anemia; ss ss 19:33 19:02 01/30/2020 19:02 Discharged to Home. Impression: Trichomoniasis. Condition is jb4 Stable. Forms are Medication Reconciliation Form, Thank You Letter, Antibiotic Education, Prescription Opioid Use. Follow up: Emergency Department; When: As needed; Reason: Worsening of condition. Follow up: Private Physician; When: 2 - 3 days; Reason: Recheck today's complaints, Continuance of care, Re-evaluation by your physician. kb
[2020-01-30] MEDS ORDERED: metroNIDAZOLE 500 MG TABLET ONE (19:29)
== END 2020-01-30 19:33 | disposition home or self-care (01) ==
LOC: ER 15:38
DX: A59.9 Trichomoniasis, unspecified (principal)
CPT/HCPCS: 87088; 85025; 87086; 80048; 36415; 81025; 82565; 80076; 83690; 74177; Q9967; 81003; 81015; 99284

== ENCOUNTER 2021-07-27 06:32 | Day surgery (SDC) | payer OTHER ==
[2021-07-27 06:48] LABS: Specific Gravity 1.025 (1.005-1.030)
[2021-07-27] MEDS ORDERED: Ringers Lactate 1,000 ML IV ONE (06:51)
[2021-07-27] MEDS: MOXIFLOXACIN HCL 0.5% 3ML OPTH OPTH ONE ×3 (06:55→07:25)
[2021-07-27] MEDS: PHENYLEPHRINE 2.5% OPTH 2 ML ONE ×3 (06:55→07:25)
[2021-07-27] MEDS: CYCLOPENTOLATE 1% OPTH 2 ML ONE ×3 (06:55→07:25)
[2021-07-27] MEDS ORDERED: TOBRADEX 0.3-0.1% OPTH OINTMENT ONE (07:09)
[2021-07-27] MEDS ORDERED: BSS OPTHALMIC SOL 15 ML OPTH ONE (07:09)
[2021-07-27] MEDS ORDERED: POVIDONE-IODINE 5% EYE DROPS ONE (07:09)
[2021-07-27] MEDS ORDERED: propofoL 200 MG/20 ML VIAL IV ONE (07:21)
[2021-07-27] MEDS ORDERED: MIDAZOLAM HCL 2 MG/2 ML INJ ONE (07:21)
[2021-07-27] MEDS ORDERED: FENTANYL CITR 100 MCG/2 ML ONE ×2 (07:21→07:53)
[2021-07-27] MEDS ORDERED: ONDANSETRON 4 MG/2 ML VIAL ONE (07:22)
[2021-07-27] MEDS ORDERED: LIDOCAINE 2% MPF 5 ML VIAL ONE (07:22)
[2021-07-27] MEDS ORDERED: KETOROLAC 30 MG/ML INJ ONE (07:23)
[2021-07-27] MEDS ORDERED: dexAMETHasone 10 MG/ML VIAL ONE (07:23)
[2021-07-27] MEDS ORDERED: GLYCOPYRROLATE 0.2 MG/ML SYR ONE (07:47)
[2021-07-27] MEDS: HYDROMORPHONE HCL 1 MG/ML INJ ONE ×2 (09:30→09:37)
[2021-07-27 10:53] VITALS: BP 110/71; TEMP 97.7; O2SAT 95
--- NOTE | 2021-07-27 20:17 | OP ---
Date of Procedure: 07/27/2021 Surgeon: Kirby العلي MD Preoperative Diagnosis: Exotropia. Postoperative Diagnosis: Exotropia. Procedure Performed: Resection of right medial rectus 4 mm and recession right lateral rectus 4 mm. Description Of Procedure: After being properly identified in the preoperative holding area, the kemi ent was taken back to the operating room where a time-out was performed. The patient was then preppe d and draped in normal sterile fashion. Mobilization of the right globe confirmed good lateral movem ent without significant restriction and therefore the preoperative plan of operating on the patient's right eye for her exotropia was carried out. Of note, the patient had a previous strabismus procedu re performed as a child on her left eye and has resultant exotropia measuring over 30 prism diopters in the office, but only correctable without diplopia to approximately 23. The globe was grasped with a pair of 0.12 forceps and the conjunctiva incised laterally and dissected down to the lateral rectu s muscle, which was hooked with a muscle hook and then later cross hooked in order to release any pos sible entrapment of the inferior oblique. This muscle was then cleaned and dissected and a 6.0 sutur e on an S14 needle was used to pass through the medial half of the muscle belly going superiorly x2 a nd locked into position and then a second pass with a second suture performed on the inferior aspect of the muscle. The sutures were then drawn taut and the muscle disinserted using a Paula scissors . The caliper was set to 4 mm and 4 mm was measured back from the original muscle insertion and then each of the sutures were placed in the naheed corresponding to a parallel, but posterior insertion fro m the original muscle insertion. Once this had been performed, the caliper was again used to confirm 4 mm placement and placement of the recessed muscle showed good parallel alignment. Our attention w as then turned to the medial rectus. The conjunctiva was again incised with a Paula scissors and dissected and the medial rectus again isolated with a muscle hook. The muscle was extensively cleane d and then a Erica clamp placed over the muscle and tying it into position. Once this was confirmed to be in good locking position, the muscle was disinserted again using Paula scissors. Using the same caliper, again set to 4 mm, 4 mm was marked on the muscle and the same 6.0 suture, at this time kept double armed rather than being cut in half, was used to place our sutures through the muscle be lly, one suture through the superior half and one suture through the inferior half for a total of 4 p asses. Once this had been performed, the sutures were then anchored into the original muscle stump a nd tied securely into position and the muscle stump remnant cut free and removed and the Erica clamp . At this point, the globe was again retested in order to confirm good mobility and this was had. C onjunctiva closure was not performed, however, because closure of the conjunctiva did result in some restriction of movement and therefore the wounds were left open. There was no significant bleeding. No complications were had and the patient was taken to the postoperative holding area in stable cond ition, having tolerated the procedure well under general anesthesia. The patient is to follow up wit h myself, Dr. Kirby العلي at the [facility] [place] tomorrow morning. JEFFREY/KIERRAL Voice ID: [id number] Report ID: [id number]
== END 2021-07-27 10:45 | disposition home or self-care (01) ==
LOC: OR 06:32
PROVIDERS: ATTEND Ophthalmology
PROC: 08B Eye, Excision (ICD-10-PCS; principal; 2021-07-27 07:30)
DX: H50.10 Unspecified exotropia (principal); Z20.822 Contact with and (suspected) exposure to COVID-19
CPT/HCPCS: 67312; 81025; U0002; J2704; J2250; J3010 ×2; J1100; J1170; J7120; J2405

== ENCOUNTER 2021-07-29 13:52 | Emergency (ER) | payer OTHER ==
--- OUTSIDE RECORDS SUMMARY | 2021-07-29 13:56 | XMS REPORT | Continuity of Care Document ---
:[address] [facility] t Address [address] [place] [address] Care Team Providers Name Role Phone RACQUEL Primary Care Physician Unavailable KIKI TEJEDA Attending Clinician Unavailable ROLLY Attending Clinician Unavailable Rolly SLOAN Attending Clinician Kiki Tejeda MD Attending Clinician Billy Bella Attending Clinician Ernesto_Rey Attending Clinician Unavailable Doctor Unassigned, Name Attending Clinician Unavailable ROLLY Admitting Clinician Unavailable Ernesto_Rey Admitting Clinician Unavailable Payers Payer Name Policy Type Policy Number Effective Date Expiration Date Vaughn argueta [facility] [id number] 2019 CHOICE MEDICAID 00:00:00 [facility] [id number] CHOICE (MEDICAID REPLACEMENT - HMO) Problems Condition Condition Condition Status Onset Resolution [...] Non-immune 3-04 da 00:00: Medical 00 Group Trichomona Trichomona Disease Active 2020-0 U nivers l l 1-16 ity of vulvov[place] it[place] 00 Medical Branch Infection Infection Problem Active [place] by by 1-14 da Trichomona Trichomona 00:00: Me dical s s 00 Group Cessation Cessation Disease Active 2019-0 Uni vers of tobacco of tobacco 1-14 it y of use in use in 00:00: [place] previous previous 00 Medica l 12 months 12 months Bran ch History of History of Disease Active 2019-0 U nivers glaucoma glaucoma 1-14 ity of 00:00: [address] Branch Allergies, Adverse Reactions, Alerts Allergy Allergy Status Severity Reaction(s) Onset Inactive Treating Comm ents Source Name Type Date Date Clinician NO KNOWN Drug Active Univers ALLERGIE Class ity of S [facility] Social History Social Habit Start Date Stop Date Quantity Comments Source Exposure to Not sure [facility] SARS-CoV-2 [place] Medical (event) Branch History SDOH University o f Alcohol Frequency [facility] edical Branch History SDOH University o f Alcohol Std [place] Medical Drinks Branch History SDCT University o f Alcohol Binge [place] Medic al Branch Tobacco use and 2021-05-02 2021-05-02 Never used Universit y of exposure 00:00:00 00:00:00 [facility] Alcohol Comment 2021-05-02 2021-05-02 occasional Universit y of 00:00:00 00:00:00 [facility] Tobacco Comment 2021-05-02 2021-05-02 1 PPD Universit y of 00:00:00 00:00:00 [facility] Alcohol intake 2021-05-02 2021-05-02 0 /d University of 00:00:00 00:00:00 [facility] History of 2018-12-14 Cigarette Smoker Universi ty of tobacco use 00:00:00 [facility] Sex Assigned At [birth year] Universit y of 00:00:00 00:00:00 [facility] Smoking Status Start Date Stop Date Source Former Smoker [facility] Current every day smoker 2021-05-02 00:00:00 Uni versity of [facility] Medications Ordered Filled Start Stop Current Ordering Indication Dosage Frequency Signature Comments Components Source Medication Medication Date Date Medication? Clinician (SIG) Name Name cefTRIAXone 2020-06- No [id number] 500mg Univers (ROCEPHIN) 07-02 ity of injection 16:45: 15:44 [place] 500 mg 00 :00 [facility] cefTRIAXone 2020-06- No [id number] 500mg 500 mg, Univers (ROCEPHIN) 07-02 Intramuscu it y of injection 16:45: 15:44 [place], ONCE, [place] 500 mg 00 :00 1 dose, On [facility] 05/02/21 at 1045, DENNIS
Re ason for Anti-Infec tive: Empiric Therapy for Suspected Infection< br>Empiric Therapy Site: Other
O ther site: uterus
Duration of therapy: 72 hours No known 2020-06 No Univers medications 30 ity of 09:10: [place] 27 [facility] cariprazine 2020-06 Yes Take by Un lyle (VRAYLAR) 1-30 mouth. 1 ity of 1.5 mg Cap 08:57: daily [place] 59 [facility] cariprazine 2020-06 Yes Take by Un lyle (VRAYLAR) 1-30 mouth. 1 ity of 1.5 mg Cap 08:57: daily [place] 59 [facility] cariprazine 2020-06 Yes Take by Un lyle (VRAYLAR) 1-30 mouth. 1 ity of 1.5 mg Cap 08:57: daily [address] metroNIDAZO 2020-06- Yes [id number] 500mg Take 1 Univers LE (FLAGYL) 07-02 12-15 tablet by it y of 500 mg 00:00: 05:59 mouth 2 [place] tablet 00 :00 (two) Medical [facility] daily for 14 days. doxycycline 2020-06- Yes [id number] 100mg Take 1 Univers hyclate 100 1-30 12-15 tablet by it y of mg tablet 00:00: 05:59 [place] 2 [place] (two) Medical times Branch daily for 14 days. metroNIDAZO 2020-06- Yes [id number] 500mg Take 1 Univers LE (FLAGYL) 1-30 12-15 tablet by it y of 500 mg 00:00: 05:59 mouth 2 [place] tablet 00 :00 (two) Medical times Branch daily for 14 days. doxycycline 2020-06- Yes [id number] 100mg Take 1 Univers hyclate 100 1-30 12-15 tablet by it y of mg tablet 00:00: 05:59 mouth 2 [place] 00 [place] (two) Medical times Branch daily for 14 days. metroNIDAZO 2020-06- Yes [id number] 500mg Take 1 Univers LE (FLAGYL) 1-30 12-15 tablet by it y of 500 mg 00:00: 05:59 mouth 2 [place] tablet 00 :00 (two) Medical times Branch daily for 14 days. doxycycline 2020-06- Yes [id number] 100mg Take 1 Univers hyclate 100 1-30 12-15 tablet by it y of mg tablet 00:00: 05:59 mouth 2 [place] 00 :[place] (two) Medical times Branch daily for 14 days. PROMETHAZIN 2020- No [id number] TAKE 1 Univers E 25 mg 3-25 04-30 TABLET BY ity of tablet 00:00: 00:00 MOUTH [place] 00 :00 EVERY 6 Medical HOURS Branch NEEDED FOR NAUSEA AND VOMITING proMETHazin 2020- No [id number] 25mg Take 1 Univers e 25 mg -30 tablet by ity of tablet 00:00: 00:00 mouth [place] 00 :00 every 6 Medical (six) Branch hours as needed for Nausea and Vomiting (N/V). proMETHazin 2020- No [id number] 25mg Insert 1 Univers e 25 mg -30 Suppositor ity o f suppository 00:00: 00:00 y into Chandu as 00 :00 rectum Medical every 6 Branch (six) hours as needed for Nausea and Vomiting (N/V) or N/V unresponsi ve to oral antiemetic s. PNV 67-iron 2020- No [id number] 1{capsu Take 1 Univers ps-folate 06-3030 le} capsule by ity of no.1-dha 00:00: 00:00 mouth [place] (VITAFOL 00 :00 daily. Medical ULTRA) 29 Branch mg iron- 1 mg-200 mg Cap acetaminoph acetaminoph No acetaminop [place] en 300 en 300 hen 300 da mg-codeine mg-codeine mg-codeine Medical 30 mg 30 mg 30 mg Group tablet tablet tablet BD BD No BD [place] Ultra-Fine Ultra-Fine [...] route. oral route. hours by oral route. hydroxyzine hydroxyzine No hydroxyzin [place] HCl 25 mg HCl 25 mg e HCl 25 d a tablet tablet mg tablet Medica l Group ibuprofen ibuprofen No ibuprofen [place] 800 mg 800 mg 800 mg da tablet tablet tablet Medical Group Levemir Levemir No Levemir [place] [facility] FlexTouch FlexTouch FlexTouch da U-100 U-100 U-100 Medical Insulin 100 Insulin 100 Insulin Group unit/mL (3 unit/mL (3 100 mL) mL) unit/mL (3 subcutaneou subcutaneou mL) s pen s pen subcutaneo us pen pregabalin pregabalin No pregabalin [place] 75 mg 75 mg 75 mg da capsule capsule capsule Medica l Group promethazin promethazin No promethazi [place] e 25 mg e 25 mg ne 25 mg da tablet Take tablet Take tablet Medical 1 tablet 1 tablet Take 1 Group every 6 every 6 tablet hours by hours by every 6 oral route oral route hours by as needed. as needed. oral route as needed. Sprintec Sprintec No 1 Q1D Sprintec [place] (28) 0.25 (28) 0.25 (28) 0.25 da mg-35 mcg mg-35 mcg mg-35 mcg Medical tablet Take tablet Take tablet Group 1 tablet 1 tablet Take 1 every day every day tablet by oral by oral every day route. route. by oral route. tinidazole tinidazole No tinidazole [place] 500 mg 500 mg 500 mg da tablet Take tablet Take tablet Medical 1 tablet 1 tablet Take 1 Group twice a day twice a day tablet by oral by oral twice a route for 2 route for 2 day by days. days. oral route for 2 days. triamcinolo triamcinolo No triamcinol [place] ne ne one da acetonide acetonide acetonide Medical 0.1 % 0.1 % 0.1 % Group topical topical topical cream cream cream True Metrix True Metrix No True M [...] gauge gauge gauge Medical Group Immunizations Ordered Filled Immunization Date Status Comments [facility] e Immunization Name Name influenza, influenza, 2019-06-16 Completed [place] [facility] richi injectable, injectable, 00:00:00 Group quadrivalent quadrivalent Influenza Virus 2019-06-16 Completed Universit y of Vaccine Quad .5 mL 00:00:00 [facility] 6+ MO Branch Influenza Virus 2019-06-16 Completed Universit y of Vaccine Quad .5 mL 00:00:00 [facility] 6+ MO Branch Influenza Virus 2019-06-16 Completed Universit y of Vaccine Quad .5 mL 00:00:00 [facility] 6+ MO Branch Influenza Virus 2019-06-16 Completed Universit y of Vaccine Quad .5 mL 00:00:00 [facility] IM 6+ MO Branch Vital Signs Vital Name Observation Time Observation Value Comments Source Systolic blood 2021-05-02 14:51:00 116 mm[Hg] Univer sity of pressure [facility] Diastolic blood 2021-05-02 14:51:00 75 mm[Hg] Unive rsity of [facility] Heart rate 2021-05-02 14:51:00 73 /min [facility] Body temperature 2021-05-02 14:51:00 36.83 [facility] Body height 2021-05-02 14:51:00 165.1 cm [facility] Body weight 2021-05-02 14:51:00 105.87 kg [facility] BMI 2021-05-02 14:51:00 38.84 kg/m2 [facility] Height 2020-02-02 00:00:00 65 [in_i] [facility] BMI (Body Mass 2020-02-02 00:00:00 37.2 kg/m2 [place] [employer] Medical Index) Group Body Weight 2020-02-02 00:00:00 223.8 [lb_av] [facility] BP Diastolic 2020-01-12 00:00:00 76 mm[Hg] [facility] Height 2020-01-12 00:00:00 65 [in_i] [facility] BMI (Body Mass 2020-01-12 00:00:00 42.1 kg/m2 [place] [employer] [facility] [employer] Medical Index) Group BP Systolic 2020-01-12 00:00:00 123 mm[Hg] [facility] Body Weight 2020-01-12 00:00:00 253 [lb_av] [facility] BP Diastolic 2020-01-05 00:00:00 73 mm[Hg] [facility] Height 2020-01-05 00:00:00 65 [in_i] [facility] BMI (Body Mass 2020-01-05 00:00:00 42.3 kg/m2 [place] [facility] [employer] Medical Index) Group BP Systolic 2020-01-05 00:00:00 131 mm[Hg] [facility] Body Weight 2020-01-05 00:00:00 254.4 [lb_av] [facility] BP Diastolic 2019-12-29 00:00:00 67 mm[Hg] [facility] Height 2019-12-29 00:00:00 65 [in_i] [facility] BMI (Body Mass 2019-12-29 00:00:00 42.2 kg/m2 [facility] Medical Index) Group BP Systolic 2019-12-29 00:00:00 112 mm[Hg] [facility] Body Weight 2019-12-29 00:00:00 253.4 [lb_av] [facility] BP Diastolic 2019-12-22 00:00:00 74 mm[Hg] [facility] Height 2019-12-22 00:00:00 65 [in_i] [facility] BMI (Body Mass 2019-12-22 00:00:00 41.3 kg/m2 [facility] Medical Index) Group BP Systolic 2019-12-22 00:00:00 123 mm[Hg] [facility] Body Weight 2019-12-22 00:00:00 248 [lb_av] [facility] BP Diastolic 2019-12-16 00:00:00 77 mm[Hg] [facility] Height 2019-12-16 00:00:00 65 [in_i] [facility] BMI (Body Mass 2019-12-16 00:00:00 40.9 kg/m2 [facility] Medical Index) Group BP Systolic 2019-12-16 00:00:00 122 mm[Hg] [facility] Body Weight 2019-12-16 00:00:00 246 [lb_av] [facility] BP Diastolic 2019-12-09 00:00:00 84 mm[Hg] [facility] Height 2019-12-09 00:00:00 65 [in_i] [facility] BMI (Body Mass 2019-12-09 00:00:00 40.3 kg/m2 [facility] Medical Index) Group BP Systolic 2019-12-09 00:00:00 134 mm[Hg] [facility] Body Weight 2019-12-09 00:00:00 242 [lb_av] [facility] BP Diastolic 2019-11-11 00:00:00 77 mm[Hg] [facility] Height 2019-11-11 00:00:00 65 [in_i] [facility] BMI (Body Mass 2019-11-11 00:00:00 39.3 kg/m2 [facility] [employer] [facility] [employer] Medical Index) Group BP Systolic 2019-11-11 00:00:00 128 mm[Hg] [facility] Body Weight 2019-11-11 00:00:00 236.1 [lb_av] [facility] BP Diastolic 2019-10-14 00:00:00 81 mm[Hg] [facility] Height 2019-10-14 00:00:00 65 [in_i] [facility] BMI (Body Mass 2019-10-14 00:00:00 38.4 kg/m2 [place] [employer] [facility] [employer] Medical Index) Group BP Systolic 2019-10-14 00:00:00 126 mm[Hg] [facility] Body Weight 2019-10-14 00:00:00 230.8 [lb_av] [facility] BP Diastolic 2019-09-17 00:00:00 65 mm[Hg] [facility] Height 2019-09-17 00:00:00 65 [in_i] [facility] BMI (Body Mass 2019-09-17 00:00:00 34.6 kg/m2 [facility] [employer] Medical Index) Group BP Systolic 2019-09-17 00:00:00 125 mm[Hg] [facility] Body Weight 2019-09-17 00:00:00 208.1 [lb_av] [facility] Height 2019-08-17 00:00:00 65 [in_i] [facility] BMI (Body Mass 2019-08-17 00:00:00 34.2 kg/m2 [facility] [employer] [facility] [employer] Medical Index) Group Body Weight 2019-08-17 00:00:00 205.8 [lb_av] [facility] Procedures Procedure Date / Time Performing Clinician Source Performed US PELVIS COMPLETE WITH 2021-05-12 18:01:56 Chio Stokes [facility] TRANSVAGINAL Medical Branch POCT TEST 2021-05-02 [facility]:00[facility], [facility] 2020-01-12 00:00:00 [facility] non-stress test 2020-01-12 00:00:00 [place] [facility] US(FBP)W/0 NON STRESS 2020-01-05 00:00:00 [place] [employer] [facility] [employer] Medical TEST Group non-stress test 2019-12-29 00:00:00 [place] [facility] US(FBP)W/0 NON STRESS 2019-12-22 00:00:00 [place] [employer] [facility] [employer] Medical TEST Group US(FBP)W/0 NON STRESS 2019-12-16 00:00:00 [place] [employer] [facility] [employer] Medical TEST Group US, obstetric, limited 2019-12-09 00:00:00 [facility] US, obstetric, limited 2019-11-10 00:00:00 [facility] US, obstetric, limited 2019-10-14 00:00:00 [facility] ULTRASOUND, 2019-08-17 [facility]00 [facility] REAL [facility] WITH Group IMAGE DOC, AND MATERNAL EVAL PLUS DETAILED ANATOMIC EXAMINATION, TRANSABDOMINAL APPROACH; SINGLE OR FIRST GESTATION US, obstetric, limited 2019-08-17 00:00:00 [facility] Eye Surgery 2000-06-03 00:00:00 [place] [facility] Plan of Care Planned Activity Planned Date Details Comments Source Diagnostic Test 2020-02-02 urinalysis, [place] [facility] Pending 00:00:00 dipstick [code = Group urinalysis, dipstick] Diagnostic Test 2020-02-02 glucose, [place] [facility] Pending 00:00:00 fingerstick, blood Group [code = glucose, fingerstick, blood] Encounters Start End Encounter Admission Attending Care Care Encounter Source Date/Time Date/Time Type Type Clinicians Facility Department ID 2021-08-03 2021-08-03 Outpatient R [facility] [id number] Univers 09:00:00 09:00:00 [id number] [facility] 2021-08-03 2021-08-03 Outpatient R [facility] [id number] Univers 09:00:00 09:00:[address] [facility] 2021-05-23 2021-05-23 Outpatient R TEJEDAEDUEN [facility] [id number] Univers 13:15:00 13:15:[address] [facility] 2021-05-12 2021-05-12 [facility] [id number] Univers 11:40:15 23:59:00 [facility] 2021-05-12 2021-05-12 [facility] [id number] Univers 11:00:00 23:59:00 Encounter Chio PERDUE [id number] ity [id number] [facility] [id number] [address] [place] [address] 2021-05-12 2021-05-12 [facility] [id number] Univers 11:00:00 11:00:[id number] [facility] 2021-05-08 2021-05-08 Outpatient R [facility] [id number] Univers 10:30:00 10:30:[id number] [facility] 2021-05-08 2021-05-08 Outpatient R [facility] [id number] Univers 10:30:00 10:30:00 [facility] 2021-05-02 2021-05-02 Office TejedaNancy [facility] [id number] Univers 08:41:26 09:47:42 Visit Kiki PERDUE [id number] i ty of [id number] PROF[place] [id number] Nd dical NAL [address] [place] [address] 2021-05-02 2021-05-02 Telephone Nancy Tejeda [facility] [id number] Univers 00:00:00 00:00:00 Kiki PERDUE [id number] i ty of [id number] [id number] Nd dical NAL [address] [place] [address] 2021-05-01 2021-05-01 Telephone Khoi [facility] [id number] Univers 00:00:00 00:00:00 Nallely Cervantes [employer]SEM[employer] [id number] it [facility] [id number] [place] as MATERNAL [id number] Med ical & CHILD 107 [facility] 2020-04-20 2020-04-20 Outpatient G_[facility] 2019 [place] 02:21:00 02:21:00 1118 [facility] 2020-02-02 2020-02-02 Outpatient G_[facility] MMG 2019 [place] 08:12:00 08:12:00 0901 [facility] 2020-02-02 2020-02-02 Hira MMG [place] - [id number] M atagor 00:00:00 00:00:00 Discovery radha Le MD: [address] [place] [address] , Ph. [phone] 2020-01-27 2020-01-27 Outpatient G_[facility]G 2019 [place] 10:43:00 10:43:00 0826 [facility] 2020-01-12 2020-01-12 Outpatient G_[facility] MMG 2019 [place] 07:45:00 07:45:00 0811 Medical Group 2020-01-12 2020-01-12 Karime MM [place] - [id number] M atagor 00:00:00 00:00:00 Dannie Galindo Medical Medica mojgan MD: [address] [place] [address] , Ph. [phone] 2020-01-06 2020-01-06 Outpatient G_[facility] MMG [id number] [place] 12:40:00 12:40:00 0805 [facility] 2020-01-05 2020-01-05 Outpatient G_[facility]app[facility] MMG MMG [id number] [place] 12:58:00 12:58:00 0804 [facility] 2020-01-05 2020-01-05 Karime MMG [place] - [id number] M atagor 00:00:00 00:00:00 Ansley Youngblood MD: [address] [id number] , Ph. [phone] 2020-01-04 2020-01-04 Outpatient G_[facility] MMG [id number] [place] 09:32:00 09:32:00 0803 [facility] 2019-12-29 2019-12-29 Outpatient G_[facility] MMG MMG [id number] [place] 09:58:00 09:58:00 0728 da Medical [facility] 2019-12-29 2019-12-29 Karime MMG [place] - [id number] M atagor 00:00:00 00:00:00 Ansley Youngblood MD: [address] [phone] , Ph. [phone] 2019-12-22 2019-12-22 Outpatient G_[facility] MMG MMG [id number] [place] 09:11:00 09:11:00 0721 [facility] 2019-12-22 2019-12-22 Karime MMG [place] - [id number] M atagor 00:00:00 00:00:00 Ansley Youngblood MD: [address] [id number] , Ph. [phone] 2019-12-16 2019-12-16 Outpatient G_[facility]as MMG MMG [id number] [place] 10:26:00 10:26:00 0715 da [facility] 2019-12-16 2019-12-16 Karime MMG [place] - [id number] M atagor 00:00:00 00:00:00 Ansley Youngblood MD: [address] [address] , Ph. [phone] 2019-12-15 2019-12-15 Outpatient G_[facility] MMG 2019 [place] 12:46:00 12:46:00 0714 [facility] 2019-12-09 2019-12-09 Outpatient G_[facility] MMG 2019 [place] 07:39:00 07:39:00 0708 [facility] 2019-12-09 2019-12-09 Karime MMG [place] - [id number] M atagor 00:00:00 00:00:00 Dannie Galindo Medical Medica mojgan MD: [address] [address] , Ph. [phone] 2019-11-26 2019-11-26 Outpatient G_[facility] MMG 2019 [place] 11:34:00 11:34:00 0707 [facility] 2019-11-25 2019-11-25 Outpatient G_[facility] MMG 2019 [place] 11:42:00 11:42:00 0624 [facility] 2019-11-18 2019-11-18 Outpatient G_[facility] MMG 2019 [place] 09:39:00 09:39:00 0617 [facility] 2019-11-18 2019-11-18 Karime MMG [place] - [id number] M atagor 00:00:00 00:00:00 Ansley Youngblood Mediclg ulrich MD: [address] [address] , Ph. [phone] 2019-11-11 2019-11-11 Outpatient G_[facility] MMG MMG [id number] [place] 08:50:00 08:50:00 0610 [facility] 2019-11-11 2019-11-11 Outpatient G_[facility] MMG [id number] [place] 08:50:00 08:50:00 0616 [facility] 2019-11-11 2019-11-11 Karime MMG [place] - [id number] M atagor 00:00:00 00:00:00 Dannie Galindo Medical Medica l MD: [address] [place] [address] , Ph. [phone] 2019-11-02 2019-11-02 Outpatient G_[facility] MMG 2019 [place] 11:46:00 11:46:00 0609 [facility] 2019-10-14 2019-10-14 Outpatient G_[facility]G MMG 2019 [place] 07:50:00 07:50:00 0513 [facility] 2019-10-14 2019-10-14 Karime MM [place] - [id number] M atagor 00:00:00 00:00:00 Dannie Galindo Medical Medica mojgan VASQUES: [address] [place] [address] , Ph. [phone] 2019-10-03 2019-10-03 Outpatient G_Pappas MMG MMG 2019 [place] 12:28:00 12:28:00 0512 [facility] 2019-09-17 2019-09-17 Outpatient G_[facility] MMG MMG 2019 [place] 09:23:00 09:23:00 0416 Medical [facility] 2019-09-17 2019-09-17 Hira MM [place] - [id number] M atagor 00:00:00 00:00:00 Discovery radha Le MD: [address] [place] [address] , Ph. [phone] 2019-08-21 2019-08-21 [facility] [id number] 00:00:00 00:00:00 Nallely Cervantes [employer] [id number] [facility] [id number] MATERNAL [id number] & CHILD [address] [place] [address] 2019-08-19 2019-08-19 Outpatient G_[facility]as MMG MMG [id number] [place] 08:58:00 08:58:00 0318 Medical Group 2019-08-17 2019-08-17 Outpatient G_[facility]appas [facility]G MMG 2019 [place] 11:08:00 11:08:00 0316 Medical Group 2019-08-17 2019-08-17 Hira [facility] [place] - [id number] M atagor 00:00:00 00:00:00 Discovery radha Le MD: 600 [facility] - [address], [facility] [address] , Ph. [phone] 2019-07-30 2019-07-30 Orders Doctor JODI [id number] 00:00:00 00:00:00 Only Unassigned, JHONATHAN [id number] [place] [id number] 2019-07-21 2019-07-21 Outpatient G[facility]appas [facility] 2019 [place] 04:29:00 04:29:00 0313 [facility] 2019-07-21 2019-07-21 Outpatient G_Pappas [facility] 2019 [place] 04:29:00 04:29:00 0218 [facility] 2019-07-14 2019-07-14 Routine Khoi, [facility] [id number] 10:09:33 11:26:23 Nallely Cervantes [employer] [id number] Visit [facility] [id number] MATERNAL [id number] & CHILD [address] [place] [address] Results Test Description Test Time Test Comments Results Result Comments Source POCT TEST 2021-05-02 15:33:00 Test Item Value Reference Range Interpretation Comme nts POCT PREG (test code = 1605) Negative On board controls acceptable with C Line (test code = 3574) Yes POCT PREG LOT # (test code = 3575) POCT PREG TEST DATE (test code = 3576) [facility] Capillary blood 2020-02-02 11:27:00 Test Item Value Reference Range Interpretation Comments GLU (test code = GLU) [facility] - [id number] 11:21:00 Test Item Value Reference Range Interpretation Comments Leukocytes (test code = Leukocytes) Small Nitrite (test code = Nitrite) negative Urobilinogen (test code = .2 Urobilinogen) Protein (test code = Protein) 100 pH (test code = pH) 6.5 Blood (test code = Blood) Large Specific Defiance (test code = 1.030 Specific Defiance) Ketone (test code = Ketone) Negative Bilirubin (test code = Bilirubin) Negative Glucose (test code = Glucose) Negative Appearance (test code = Appearance) Clear Color (test code = Color) Yellow [facility] W Auto Differential panel - [id number] 02:50:00 Test Item Value Reference Range Interpretation Comments white blood count (test code = 13.5 K/uL 4.0-11.5 H white blood count) red blood count (test code = red 3.46 M/uL 3.80-5.20 L blood count) hemoglobin (test code = 8.7 g/dL 10.5-15.7 L hemoglobin) hematocrit (test code = 27.8 % 34.0-50.0 L hematocrit) MCV [Entitic volume] (test code = 80.3 fL 86-100 L 84829-1) mean corpuscular hemoglobin (test 25.1 pg 26.2-33.4 L code = mean corpuscular hemoglobin) mean corpuscular HGB conc (test 31.3 g/dL 30-34 code = mean corpuscular HGB conc) red cell distribution width (test 16.1 % 12.0-15.5 H code = red cell distribution width) platelet count (test code = 139 K/uL 165-450 L platelet count) mean platelet volume (test code = 11.6 fL 9.4-12.6 mean platelet volume) Segmented neutrophils/100 81.2 % 44.4-80.1 H leukocytes in Blood (test code = 08581-9) Immature granulocytes [#/volume] 0.1 K/uL 0.0-0.03 H in Blood (test code = 38380-1) lymphocyte% (test code = 10.4 % 10.0-50.0 lymphocyte%) mono % (test code = mono %) 7.4 % 3.6-12.0 eos % (test code = eos %) 0.1 % 0.0-5.4 Basophils/100 leukocytes in 0.1 % 0.1-1.2 Unspecified specimen (test code = 39262-7) Band form neutrophils [#/volume] 10.92 K/uL 1.56-6.13 H in Blood (test code = 99406-6) Lymphocytes [#/volume] in 1.4 K/uL 1.18-3.74 Unspecified specimen by Automated count (test code = 21671-6) mono # (test code = mono #) 1.00 K/uL 0.24-0.86 H eos # (test code = eos #) 0.01 K/uL 0.04-0.36 L basophil # (test code = basophil 0.01 K/uL 0.01-0.08 #) NRBC% (test code = NRBC%) 0 /100 WBC 0-0.2 NRBC# (test code = NRBC#) 0 K/uL [facility]/volume] in [id number] 02:50:00 Test Item Value Reference Range Interpretation Comments Hemoglobin A1c [Mass/volume] in Blood 6.2 % 4.0-6.0 H (test code = 28094-7) [facility] W Auto Differential panel - [id number] 02:13:00 Test Item Value Reference Range Interpretation Comments white blood count (test code = 14.3 K/uL 4.0-11.5 white blood count) red blood count (test code = red 3.75 M/uL 3.80-5.20 L blood count) hemoglobin (test code = 9.3 g/dL 10.5-15.7 L hemoglobin) hematocrit (test code = 30.3 % 34.0-50.0 L hematocrit) MCV [Entitic volume] (test code = 80.8 fL 86-100 L 06323-2) mean corpuscular hemoglobin (test 24.8 pg 26.2-33.4 L code = mean corpuscular hemoglobin) mean corpuscular HGB conc (test 30.7 g/dL 30-34 code = mean corpuscular HGB conc) red cell distribution width (test 15.9 % 12.0-15.5 H code = red cell distribution width) platelet count (test code = 172 K/uL 165-450 platelet count) mean platelet volume (test code = 11.3 fL 9.4-12.6 mean platelet volume) Segmented neutrophils/100 74.7 % 44.4-80.1 leukocytes in Blood (test code = 76144-3) Immature granulocytes [#/volume] 0.1 K/uL 0.0-0.03 H in Blood (test code = 73007-5) lymphocyte% (test code = 16.5 % 10.0-50.0 lymphocyte%) mono % (test code = mono %) 7.4 % 3.6-12.0 eos % (test code = eos %) 0.3 % 0.0-5.4 Basophils/100 leukocytes in 0.2 % 0.1-1.2 Unspecified specimen (test code = 23777-4) Band form neutrophils [#/volume] 10.66 K/uL 1.56-6.13 H in Blood (test code = 56716-2) Lymphocytes [#/volume] in 2.4 K/uL 1.18-3.74 Unspecified specimen by Automated count (test code = 14560-2) mono # (test code = mono #) 1.05 K/uL 0.24-0.86 H eos # (test code = eos #) 0.04 K/uL 0.04-0.36 basophil # (test code = basophil 0.03 K/uL 0.01-0.08 #) NRBC% (test code = NRBC%) 0 /100 WBC 0-0.2 NRBC# (test code = NRBC#) 0 K/uL [facility] panel - Blood 2020-01-19 02:13:00 Test Item Value Reference Range Interpretation Comments Rh [Type] in Blood (test code = 4+ 98324-7) ABO and Rh group panel - Blood O positive (test code = 89639-7) [facility] [Presence] in Serum by [id number] 02:13:00 Test Item Value Reference Range Interpretation Comments Reagin Ab [Presence] in Serum by nonreactive nonreactive RPR (test code = 39178-0) [facility]Hepatitis B virus surface Ag [Presence] in Serum 2020-01-19 02:13:00 Test Item Value Reference Range Interpretation Comments .hepatitis B surface antigen (test negative negative code = .hepatitis B surface antigen) [facility] HospitalUrinalysis complete panel - [id number] 01:06:00 Test Item Value Reference Range Interpretation Comments Color of Urine by Auto (test code yellow = 49974-0) Appearance of Urine (test code = SL cloudy clear A 5767-9) Glucose [Presence] in Urine by negative negative Automated test strip (test code = 29825-2) Bilirubin.total [Mass/volume] in negative negative Urine (test code = 1978-6) Ketones [Mass/volume] in Urine by =1 negative H Automated test strip (test code = 86765-2) Specific gravity of Urine by 1.021 1.003-1.030 Automated test strip (test code = 23432-6) blood urine (test code = blood =1 negative H urine) pH of Urine (test code = 2756-5) 6.500 5-9 protein urine (UA) (test code = =2+ (100 negative H protein urine (UA)) Urobilinogen [Presence] in Urine normal 0.2-1.0 (test code = 67737-8) Nitrite [Presence] in Urine by negative negative Test strip (test code = 5802-4) Leukocyte esterase [Presence] in =4 negative H Urine by Automated test strip (test code = 89336-5) Erythrocytes [#/volume] in Urine =1-5 0-5 by Automated count (test code = 798-9) Leukocytes [#/area] in Urine >50 0-5 H sediment by Automated count (test code = 22002-4) Epithelial cells [Presence] in =6-10 0-5 Urine sediment by Light microscopy (test code = 96614-0) Bacteria identified in Urine by moderate (2 none detect H Culture (test code = 630-4) Casts [#/area] in Urine sediment =6-10 none detect H by Automated count (test code = 55013-7) urine culture added? (test code = yes urine culture added?) Pathologic casts [Presence] in none seen none detect Urine by Automated (test code = 31169-0) [facility] HospitalBacteria identified in Urine by [id number] 01:06:00Bacteria Ur CultLaird HospitalFetal Biophysical profile panel [id number] 11:58:00 Test Item Value Reference Range Interpretation Comments Amniotic Fluid Index (test code = 2 (16.9) Amniotic Fluid Index) Tone (test code = Tone) 2 Breathing (test code = 2 Breathing) Movement (test code = 2 Movement) [facility] Biophysical profile panel [id number] 11:58:00 Test Item Value Reference Range Interpretation Comments Amniotic Fluid Index (test code = 2 (16.9) Amniotic Fluid Index) Tone (test code = Tone) 2 Breathing (test code = 2 Breathing) Movement (test code = 2 Movement) [facility]CT + NG + TV, DNA, urine/[id number] 00:00:00 Test Item Value Reference Range Interpretation [...] (reflex to antibiotic resistance by molecular analysis)) [facility] [Presence] in Unspecified specimen by Organism specific [id number] 00:00:00 Test Item Value Reference Range Interpretation Comments group B streptococcus (gbs) by positive A real-time PCR (test code = group B streptococcus (gbs) by real-time PCR) group B streptococcus (gbs) positive A antibiotic resistance by PCR (test code = group B streptococcus (gbs) antibiotic resistance by PCR) [facility] Biophysical profile panel [id number] 14:14:00 Test Item Value Reference Range Interpretation Comments Amniotic Fluid Index (test code = 2 (15.4) Amniotic Fluid Index) Tone (test code = Tone) 2 Breathing (test code = 2 Breathing) Movement (test code = 2 Movement) [facility] Biophysical profile panel [id number] 14:14:00 Test Item Value Reference Range Interpretation Comments Amniotic Fluid Index (test code = 2 (15.4) Amniotic Fluid Index) Tone (test code = Tone) 2 Breathing (test code = 2 Breathing) Movement (test code = 2 Movement) [facility] Biophysical profile panel [id number] 14:14:00 Test Item Value Reference Range Interpretation Comments Amniotic Fluid Index (test code = 2 (15.4) Amniotic Fluid Index) Tone (test code = Tone) 2 Breathing (test code = 2 Breathing) Movement (test code = 2 Movement) [facility] Biophysical profile panel [id number] 14:14:00 Test Item Value Reference Range Interpretation Comments Amniotic Fluid Index (test code = 2 (15.4) Amniotic Fluid Index) Tone (test code = Tone) 2 Breathing (test code = 2 Breathing) Movement (test code = 2 Movement) [facility] Biophysical profile panel [id number] 10:51:00 Test Item Value Reference Range Interpretation Comments Amniotic Fluid Index (test code = 2 (14.5) Amniotic Fluid Index) Tone (test code = Tone) 2 Breathing (test code = 2 Breathing) Movement (test code = 2 Movement) [facility] Biophysical profile panel [id number] 10:51:00 Test Item Value Reference Range Interpretation Comments Amniotic Fluid Index (test code = 2 (14.5) Amniotic Fluid Index) Tone (test code = Tone) 2 Breathing (test code = 2 Breathing) Movement (test code = 2 Movement) [facility] Biophysical profile panel [id number] 10:51:00 Test Item Value Reference Range Interpretation Comments Amniotic Fluid Index (test code = 2 (14.5) Amniotic Fluid Index) Tone (test code = Tone) 2 Breathing (test code = 2 Breathing) Movement (test code = 2 Movement) [facility] Biophysical profile panel [id number] 10:51:00 Test Item Value Reference Range Interpretation Comments Amniotic Fluid Index (test code = 2 (14.5) Amniotic Fluid Index) Tone (test code = Tone) 2 Breathing (test code = 2 Breathing) Movement (test code = 2 Movement) [facility] HospitalUrinalysis macro (dipstick) panel - [id number] 10:30:00 Test Item Value Reference Range Interpretation Comments Leukocytes (test code = Small Leukocytes) Nitrite (test code = negative Nitrite) Urobilinogen (test code = .2 Urobilinogen) Protein (test code = 30 Protein) pH (test code = pH) 6.0 Blood (test code = Blood) Hemolyzed: Trace Specific [place] (test code 1.020 = Specific [place]) Ketone (test code = Ketone) Negative Bilirubin (test code = Negative Bilirubin) Glucose (test code = Negative Glucose) Appearance (test code = Clear Appearance) Color (test code = Color) Yellow [facility] HospitalUrinalysis macro (dipstick) panel - [id number] 10:30:00 Test Item Value Reference Range Interpretation Comments Leukocytes (test code = Small Leukocytes) Nitrite (test code = negative Nitrite) Urobilinogen (test code = .2 Urobilinogen) Protein (test code = 30 Protein) pH (test code = pH) 6.0 Blood (test code = Blood) Hemolyzed: Trace Specific [place] (test code 1.020 = Specific [place]) Ketone (test code = Ketone) Negative Bilirubin (test code = Negative Bilirubin) Glucose (test code = Negative Glucose) Appearance (test code = Clear Appearance) Color (test code = Color) Yellow [facility]Urinalysis macro (dipstick) panel - [id number] 10:30:00 Test Item Value Reference Range Interpretation Comments Leukocytes (test code = Small Leukocytes) Nitrite (test code = negative Nitrite) Urobilinogen (test code = .2 Urobilinogen) Protein (test code = 30 Protein) pH (test code = pH) 6.0 Blood (test code = Blood) Hemolyzed: Trace Specific [place] (test code 1.020 = Specific [place]) Ketone (test code = Ketone) Negative Bilirubin (test code = Negative Bilirubin) Glucose (test code = Negative Glucose) Appearance (test code = Clear Appearance) Color (test code = Color) Yellow [facility]Urinalysis macro (dipstick) panel - [id number] 10:30:00 Test Item Value Reference Range Interpretation Comments Leukocytes (test code = Small Leukocytes) Nitrite (test code = negative Nitrite) Urobilinogen (test code = .2 Urobilinogen) Protein (test code = 30 Protein) pH (test code = pH) 6.0 Blood (test code = Blood) Hemolyzed: Trace Specific [place] (test code 1.020 = Specific [place]) Ketone (test code = Ketone) Negative Bilirubin (test code = Negative Bilirubin) Glucose (test code = Negative Glucose) Appearance (test code = Clear Appearance) Color (test code = Color) Yellow [facility] HospitalTrichomonas vaginalis DNA [Presence] in Unspecified specimen by JAMES with probe [id number] 00:00:00 Test Item Value Reference Range Interpretation Comments trichomonas vaginalis by real-time positive A PCR (reflex to metronidazole resistance) (test code = trichomonas vaginalis by real-time PCR (reflex to metronidazole resistance)) [facility] W Auto Differential panel - [id number] 08:40:00 Test Item Value Reference Range Interpretation Comments white blood count (test code = 11.4 K/uL 4.0-11.5 white blood count) red blood count (test code = red 3.59 M/uL 3.80-5.20 L blood count) hemoglobin (test code = 10.2 g/dL 10.5-15.7 L hemoglobin) hematocrit (test code = 32.0 % 34.0-50.0 L hematocrit) MCV [Entitic volume] (test code = 89.1 fL 86-100 13485-1) mean corpuscular hemoglobin (test 28.4 pg 26.2-33.4 [...] 44.4-80.1 leukocytes in Blood (test code = 33721-1) Immature granulocytes [#/volume] 0.1 K/uL 0.0-0.03 H in Blood (test code = 09678-0) lymphocyte% (test code = 15.8 % 10.0-50.0 lymphocyte%) mono % (test code = mono %) 7.1 % 3.6-12.0 eos % (test code = eos %) 0.4 % 0.0-5.4 Basophils/100 leukocytes in 0.2 % 0.1-1.2 Unspecified specimen (test code = 59457-3) Band form neutrophils [#/volume] 8.62 K/uL 1.56-6.13 H in Blood (test code = 63023-7) Lymphocytes [#/volume] in 1.8 K/uL 1.18-3.74 Unspecified specimen by Automated count (test code = 73099-6) mono # (test code = mono #) 0.81 K/uL 0.24-0.86 eos # (test code = eos #) 0.05 K/uL 0.04-0.36 basophil # (test code = basophil 0.02 K/uL 0.01-0.08 #) NRBC% (test code = NRBC%) 0 /100 WBC 0-0.2 NRBC# (test code = NRBC#) 0 K/uL [facility] GroupDifferential panel, method unspecified - [id number] 08:40:00NeutrophilsBandLymphocyteMonocyteEosinophilBasophilPlatelet Estimate [facility] GroupBlood group antibody screen [Presence] in Serum or Plasma 2019-11-11 08:40:00 Test Item Value Reference Range Interpretation Comments Blood group antibody screen negative [Presence] in Serum or Plasma (test code = 890-4) [facility] GroupReagin Ab [Presence] in Serum by [id number] 08:40:00 Test Item Value Reference Range Interpretation Comments Reagin Ab [Presence] in Serum by nonreactive nonreactive RPR (test code = 25330-8) [facility] GroupHIV 1+2 Ab [Presence] in [id number] 08:40:00HIV P24 AgHIV-1/2 [facility]Mat[facility] GroupUrinalysis macro (dipstick) panel - Urine 2019-09-17 09:32:01 Test Item Value Reference Range Interpretation Comments Leukocytes (test code = Leukocytes) Small Nitrite (test code = Nitrite) negative Urobilinogen (test code = .2 Urobilinogen) Protein (test code = Protein) Negative pH (test code = pH) 5.5 Blood (test code = Blood) Negative Specific [place] (test code = 1.030 Specific [place]) Ketone (test code = Ketone) Negative Bilirubin (test code = Bilirubin) Negative Glucose (test code = Glucose) 100 Appearance (test code = Appearance) Clear Color (test code = Color) Yellow [facility] HospitalUrinalysis macro (dipstick) panel - [id number] 09:32:01 Test Item Value Reference Range Interpretation Comments Leukocytes (test code = Leukocytes) Small Nitrite (test code = Nitrite) negative Urobilinogen (test code = .2 Urobilinogen) Protein (test code = Protein) Negative pH (test code = pH) 5.5 Blood (test code = Blood) Negative Specific [place] (test code = 1.030 Specific [place]) Ketone (test code = Ketone) Negative Bilirubin (test code = Bilirubin) Negative Glucose (test code = Glucose) 100 Appearance (test code = Appearance) Clear Color (test code = Color) Yellow [facility] HospitalUrinalysis macro (dipstick) panel - [id number] 09:30:00 Test Item Value Reference Range Interpretation Comments Leukocytes (test code = Small Leukocytes) Nitrite (test code = negative Nitrite) Urobilinogen (test code = .2 Urobilinogen) Protein (test code = Negative Protein) pH (test code = pH) 6.0 Blood (test code = Blood) Non-Hemolyzed: Trace Specific [place] (test 1.030 code = Specific [place]) Ketone (test code = Negative Ketone) Bilirubin (test code = Negative Bilirubin) Glucose (test code = Negative Glucose) Appearance (test code = Clear Appearance) Color (test code = Color) Yellow [facility] HospitalUrinalysis macro (dipstick) panel - [id number] 09:30:00 Test Item Value Reference Range Interpretation Comments Leukocytes (test code = Small Leukocytes) Nitrite (test code = negative Nitrite) Urobilinogen (test code = .2 Urobilinogen) Protein (test code = Negative Protein) pH (test code = pH) 6.0 Blood (test code = Blood) Non-Hemolyzed: Trace Specific [place] (test 1.030 code = Specific [place]) Ketone (test code = Negative Ketone) Bilirubin (test code = Negative Bilirubin) Glucose (test code = Negative Glucose) Appearance (test code = Clear Appearance) Color (test code = Color) Yellow [facility] HospitalChromosome 13+18+21+X+Y aneuploidy in Blood by Molecular genetics method [id number] 00:00:00 Test Item Value Reference Range Interpretation [...] contacts (test code = see notes contacts) [facility]Gen[facility] screen in Unspecified specimen by Molecular genetics method [id number] 00:00:00 Test Item Value Reference Range Interpretation [...] code = polycystic kidney disease, autosomal recessive) [id number]-iihpv-eppdz syndrome (test negative code = fugoz-juoxm-kbrsx syndrome) spinal muscular atrophy (test code negative [...] contacts (test code = contacts) see notes [facility]
[2021-07-29] MEDS ORDERED: HYDROCODONE/APAP 5/325 MG TAB ONE (14:34)
[2021-07-29] MEDS ORDERED: TOBRAMYCIN SULF 0.3% OPTH OINT ONE (15:11)
[2021-07-29] MEDS ORDERED: TOBRADEX 0.3-0.1% OPTH OINTMENT OPTH SCH (15:15)
--- NOTE | 2021-07-29 15:57 | EDPHYS ---
Physician Documentation [facility] Age[facility] 26 y[facility] Sex: Female : 1995 Arrival Date: 07/29/2021 Time: 13:56 Bed 20 Private MD: ED Physician Marvin Horne HPI: 07/29 14:04 This 26 yrs old Female presents to ER via Ambulatory with complaints of Post ms3 Surgical Pain. 14:04 The patient is experiencing pain, redness. ms3 16:14 Onset: The symptoms/episode began/occurred 2 day(s) ago. Duration: the symptoms are ms3 continuous. Aggravated by nothing. Alleviated by nothing. 26-year-old female presents for right eye pain status post strabismus surgery 2 days prior to arrival. Patient states she has had discharge from the right eye and bleeding. Patient states her pain is a 10/10. Patient denies alleviating or inciting factors. Patient denies fevers, chills, nausea, vomiting.. 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 - Social history:: Smoking status: Patient reports the use of cigarette tobacco products, smokes one-half pack cigarettes per day. ROS: 16:14 Constitutional: Negative for fever, and chills. ENT: Negative for injury, pain, and ms3 discharge, Neck: Negative for injury, pain, and swelling, Cardiovascular: Negative for chest pain, and palpitations. Respiratory: Negative for shortness of breath, cough, wheezing, and pleuritic chest pain, Abdomen/GI: Negative for abdominal pain, nausea, vomiting, diarrhea, and constipation, Back: Negative for injury and pain, MS/Extremity: Negative for injury and deformity, Skin: Negative for injury, rash, and discoloration. 16:14 All other systems are negative. 16:18 Eyes: Positive for blurry vision, pain. ms3 Exam: 16:18 Visual Acuity: Right eye 20/200. ms3 16:18 Constitutional: This is a well developed, well nourished patient who is awake, alert, and in no acute distress. Head/Face: Normocephalic, atraumatic. Neck: Trachea midline, no cervical lymphadenopathy. Supple, full range of motion without nuchal rigidity, or vertebral point tenderness. No Meningismus. Chest/axilla: Normal chest wall appearance and motion. Nontender with no deformity. Cardiovascular: Regular rate and rhythm with a normal S1 and S2. No gallops, murmurs, or rubs. Normal PMI, no JVD. No pulse deficits. Respiratory: Lungs have equal breath sounds bilaterally, clear to auscultation and percussion. No rales, rhonchi or wheezes noted. No increased work of breathing, no retractions or nasal flaring. Abdomen/GI: Soft, non-tender, with normal bowel sounds. No distension or tympany. No guarding or rebound. No evidence of tenderness throughout. Back: No spinal tenderness. No costovertebral tenderness. Full range of motion. MS/ Extremity: Pulses equal, no cyanosis. Neurovascular intact. Full, normal range of motion. Neuro: Awake and alert, GCS 15, oriented to person, place, time, and situation. Cranial nerves II-XII grossly intact. Motor strength 5/5 in all extremities. Sensory grossly intact. Cerebellar exam normal. Normal gait. 16:18 Eyes: Exam is negative for edema, erythema, tearing, Periorbital structures: appear normal, Pupils: equal, round, and reactive to light and accomodation, Extraocular movements: Conjunctiva: injected, in the right eye, subconjunctival hemorrhage(s), seen in the right eye, tearing noted, in right eye. Vital Signs: 14:04 BP 136 / 79; Pulse 80; Resp 18; Temp 98.8; Pulse Ox 99% on R/A; Weight 104.33 kg; ph Height 5 ft. 5 in. (165.10 cm); 14:30 BP 110 / 78; Pulse 16; Resp 17; Pulse Ox 97% on R/A; jg9 15:00 BP 107 / 67; Pulse 17; Resp 78; Pulse Ox 100% on R/A; jg9 16:15 BP 113 / 54; Pulse 62; Resp 14 S; Pulse Ox 98% on R/A; jg9 14:04 Body Mass Index 38.27 (104.33 kg, 165.10 cm) ph MDM: 13:58 Patient medically screened. ms3 14:39 Differential diagnosis: Corneal abrasion of Post op pain, post op infection. Data ms3 reviewed: vital signs, nurses notes, Discussed with Dr العلي. ED course: Discussed case with Dr العلي and he would like patient to have Tobradex. Patient to have something for pain. He saw patient in office yesterday.. 16:20 Counseling: I had a detailed discussion with the patient and/or guardian regarding: the ms3 historical points, exam findings, and any diagnostic results supporting the discharge/admit diagnosis, the need for outpatient follow up, an opthalmologist. Administered Medications: 14:37 Drug: HYDROcodone-acetaminophen 5 mg-325 mg 1 tabs Route: PO; jg9 15:15 Follow up: Response: No adverse reaction; Pain is unchanged, physician notified jg9 15:08 CANCELLED (not availablee): TobraDEX (tobramycin-dexamethasone) Drops (0.3 %-0.1 %) 2 jg9 drops Ophthalmic once 15:15 Drug: Tobrex (tobramycin) Ointment 0.3 % 1 application Route: Ophthalmic; Site: right jg9 eye; 16:22 Follow up: Response: No adverse reaction; Pain is decreased jg9 Disposition Summary: 07/29/21 15:57 Discharge Ordered Location: Home ms3 Condition: Stable ms3 Diagnosis - Ocular pain, right eye ms3 Followup: ms3 - With: Kirby العلي MD - When: 48 Hours - Reason: Re-evaluation by your physician Discharge Instructions: - Discharge Summary Sheet ms3 Forms: - Medication Reconciliation Form ms3 - Thank You Letter ms3 - Antibiotic Education ms3 - Prescription Opioid Use ms3 Prescriptions: - Tylenol-Codeine #3 300 mg-30 mg Oral - take 1 tablet by ORAL route every 4-6 hours for 3 days; 10 tablet; Refills: 0, ms3 Product Selection Permitted Signatures: Fatimah Tavares, RN RN ph Marvin Horne DO DO ms3 Dayana Bey RN RN jg9 Corrections: (The following items were deleted from the chart) 14:09 14:07 PMHx: eye sx; ph ph 15:08 14:40 TobraDEX (tobramycin-dexamethasone) Drops (0.3 %-0.1 %) 2 drops Ophthalmic once jg9 ordered. ms3 15:08 15:08 TobraDEX (tobramycin-dexamethasone) Drops (0.3 %-0.1 %) 2 drops Ophthalmic once jg9 ordered. jg9
--- NOTE | 2021-07-29 15:57 | ER ---
Nurse's Notes [facility] Name: Lluvia Dumont Age: 26 yrs Sex: Female : 1995 Arrival Date: 07/29/2021 Time: 13:56 Bed 20 Private MD: Diagnosis: Ocular pain, right eye Presentation: 07/29 14:04 Chief complaint: Patient states: Had R eye sx on 06/26 w/ Dr العلي, reports that ph yesterday she had pinkish drainage and "this morning my eye was pouring blood." Pt also reports purulent drainage, swelling, and warmth to area. Denies N/V or fever, eye appears red and swollen in triage. Coronavirus screen: Vaccine status: Patient reports being unvaccinated. Ebola Screen: No symptoms or risks identified at this time. Initial Sepsis Screen: Does the patient meet any 2 criteria? No. Patient's initial sepsis screen is negative. Does the patient have a suspected source of infection? No. Patient's initial sepsis screen is negative. Risk Assessment: Do you want to hurt yourself or someone else? Patient reports no desire to harm self or others. Onset of symptoms was July 29, 2021. 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 - Social history:: Smoking status: Patient reports the use of cigarette tobacco products, smokes one-half pack cigarettes per day. Screenin:19 Abuse screen: Denies threats or abuse. Denies injuries from another. Nutritional jg9 screening: No deficits noted. Tuberculosis screening: No symptoms or risk factors identified. VAN Screening:. Fall Risk None identified. Assessment: 15:19 General: Appears uncomfortable, Behavior is calm. Pain: Complains of pain in right eye. jg9 Vital Signs: 14:04 BP 136 / 79; Pulse 80; Resp 18; Temp 98.8; Pulse Ox 99% on R/A; Weight 104.33 kg; ph Height 5 ft. 5 in. (165.10 cm); 14:30 BP 110 / 78; Pulse 16; Resp 17; Pulse Ox 97% on R/A; jg9 15:00 BP 107 / 67; Pulse 17; Resp 78; Pulse Ox 100% on R/A; jg9 16:15 BP 113 / 54; Pulse 62; Resp 14 S; Pulse Ox 98% on R/A; jg9 14:04 Body Mass Index 38.27 (104.33 kg, 165.10 cm) ph ED Course: 13:56 Patient arrived in ED. ds1 14:07 Triage completed. ph 14:09 Arm band placed on. ph 14:13 Marvin Horne DO is Attending Physician. ms3 14:28 Dayana Bey, MAHESH is Primary Nurse. jg9 14:[address] العلي called and connected with Dr. Horne for patient consultation. eb 15:20 Patient has correct armband on for positive identification. Bed in low position. Call jg9 light in reach. 15:55 Kirby العلي MD is Referral Physician. ms3 16:22 No provider procedures requiring assistance completed. jg9 16:22 Patient did not have IV access during this emergency room visit. jg9 Administered Medications: 14:37 Drug: HYDROcodone-acetaminophen 5 mg-325 mg 1 tabs Route: PO; jg9 15:15 Follow up: Response: No adverse reaction; Pain is unchanged, physician notified jg9 15:08 CANCELLED (not availablee): TobraDEX (tobramycin-dexamethasone) Drops (0.3 %-0.1 %) 2 jg9 drops Ophthalmic once 15:15 Drug: Tobrex (tobramycin) Ointment 0.3 % 1 application Route: Ophthalmic; Site: right jg9 eye; 16:22 Follow up: Response: No adverse reaction; Pain is decreased jg9 Outcome: 15:57 Discharge ordered by . ms3 16:22 Discharged to home ambulatory. jg9 16:22 Condition: stable 16:22 Discharge instructions given to patient, Instructed on discharge instructions, follow up and referral plans. Demonstrated understanding of instructions, follow-up care, medications, Prescriptions given X 1. 16:23 Patient left the ED. jg9 Signatures: Debbie Esteban ds1 Fatimah Tavares, RN RN ph Jeanette Mata Marcus, DO DO ms3 Dayana Bey RN RN jg9 Corrections: (The following items were deleted from the chart) 14:07 PMHx: eye sx; [facility]
[2021-07-29 16:49] VITALS: BP 113/54; O2SAT 98
[2021-07-29 16:53] VITALS: TEMP 98.8
== END 2021-07-29 16:23 | disposition home or self-care (01) ==
LOC: ER 13:52
DX: H57.11 Ocular pain, right eye (principal); Z98.890 Other specified postprocedural states; F17.210 Nicotine dependence, cigarettes, uncomplicated
CPT/HCPCS: 99283